=== PATIENT | male | born 1965 | race Caucasian/White ===

== ENCOUNTER 2016-05-24 05:37 | Inpatient (IN) | payer BC, OTHER ==
[~2016-05-24] VITALS: Ht 185.4 cm; Wt 102.8 kg
[~2016-05-24 05:37] MED LIST: ATEN50TA8 PO; DYZC25/50 PO; FENO145T26 PO; PANT40TA PO
[2016-05-24] MEDS ORDERED: MoRPHine SULFATE 2 MG/ML CARP IV STA (06:29)
[2016-05-24] MEDS ORDERED: ONDANSETRON INJ 2 MG/ML 2 ML VIAL IV STA (06:29)
[2016-05-24] MEDS ORDERED: ACETAMINOPHEN 500 MG TAB PO STA (06:29)
[2016-05-24] MEDS ORDERED: SODIUM CHLORIDE 0.9% 1000ML 1,000 ML IV STA (06:29)
[2016-05-24] MEDS ORDERED: FURO-85 PO (06:42)
[2016-05-24] MEDS ORDERED: ALLO300T2 PO (06:42)
[2016-05-24] MEDS ORDERED: SERT-234 PO (06:42)
[2016-05-24] MEDS ORDERED: AMLO-110 PO (06:42)
[2016-05-24] MEDS ORDERED: ATOR-26 PO (06:42)
[2016-05-24] MEDS ORDERED: PRLSR20 PO (06:42)
[2016-05-24] MEDS ORDERED: LSN40 PO (06:42)
[2016-05-24] MEDS ORDERED: MIRT15TA2 PO (06:42)
[2016-05-24] MEDS ORDERED: TRMCR515 TOP (06:42)
[2016-05-24] MEDS ORDERED: BUPR-83 PO (06:42)
[2016-05-24] MEDS ORDERED: GEMF600T PO (06:42)
[2016-05-24] MEDS ORDERED: SAXAGLIPTIN PO (06:42)
[2016-05-24 06:47] LABS: BASO % 0.1 %; BASO ABS # 0.02 K/uL (0-0.2); COMPLETE YES; HEMATOCRIT 48.1 % (42-52); IG% 0.3 %; LYMPH % 10.2 %; LYMPH ABS # 1.68 K/uL (1.2-3.4); MEAN CELL VOLUME 86.5 fL (80-100); MEAN CORPUSCULAR HEMOGLOBIN 31.1 pg (25-34); MONO % 7.4 %; PLATELET COUNT 127 K/uL (130-400); RED BLOOD COUNT 5.56 M/uL (4.7-6.1); WHITE BLOOD COUNT 16.53 K/uL (4.8-10.8)
[2016-05-24 06:52] LABS: BUN/CREATININE RATIO 16.1 (10-20); CALCIUM 8.7 mg/dl (8.5-10.1); CREATININE 1.8 mg/dl (0.60-1.40); MAGNESIUM 1.7 mg/dl (1.8-2.4); POTASSIUM 4.1 mmol/L (3.5-5.1)
[2016-05-24 07:01] LABS: ALB/GLOB RATIO 0.6 (0.9-2); C-REACTIVE PROTEIN 34.7 mg/dl (0-0.29)
[2016-05-24] MEDS ORDERED: VANCOMYCIN INJ 2,000 MG in SODIUM CHLORIDE 0.9% 500ML 500 ML IV STA (07:12)
[2016-05-24] MEDS ORDERED: PIPERACILLIN/TAZOBACTAM 4.5 GM/100ML D5W IV STA (07:12)
--- NOTE | 2016-05-24 07:53 | DIAGNOSTIC IMAGING REPORT ---
CT SCAN OF THE ABDOMEN AND PELVIS WITHOUT CONTRAST CLINICAL HISTORY: Abdominal pain and swelling COMPARISON STUDY: 07/28/2006 TECHNIQUE: CT scan of the abdomen and pelvis was performed from the lung bases to the proximal femurs. Images are reviewed in the axial, sagittal, and coronal planes. IV contrast was not administered for this examination. CT DOSE: 1316.68 mGy.cm FINDINGS: Lower chest: There are mild basilar atelectatic changes present. Liver: There is hepatic steatosis. The liver is enlarged. There are areas of focal fatty sparing adjacent to the gallbladder fossa. Gallbladder: Unremarkable. Spleen: The spleen is enlarged measuring 17.5 cm. No focal masses are visualized. Pancreas: Unremarkable. Adrenal glands: There is mild left adrenal gland thickening. Kidneys: The left kidney appears surgically absent. There is no right-sided hydronephrosis. No ureteral or bladder calculi are visualized. Bowel: There are no transition zones indicate bowel obstruction. The appendix appears normal. There is no acute diverticulitis. Peritoneum: There is no intraperitoneal free air or abdominal ascites. There is a fat-containing right inguinal hernia. There is a fat-containing supraumbilical ventral hernia. Vasculature: The abdominal aorta is normal in course and caliber. Adenopathy: None. Pelvic viscera: The bladder, and pelvic viscera are unremarkable. Skeletal structures: No destructive osseous lesions are seen. IMPRESSION: 1. Postsurgical changes are prior left nephrectomy 2. Hepatic steatosis. Hepatosplenomegaly. 3. No evidence of bowel obstruction. No evidence of free air 4. No acute inflammatory changes 5. Fat-containing ventral hernia and fat-containing right inguinal hernia Electronically signed by: Arian Malone M.D. 05/24/2016 7:51 AM Dictated Date/Time: 05/24/2016 7:47 AM
--- NOTE | 2016-05-24 07:59 | DIAGNOSTIC IMAGING REPORT ---
MAXILLOFACIAL CT WITHOUT CONTRAST CLINICAL HISTORY: Facial pain and swelling. Possible cellulitis. Sinus infection. COMPARISON STUDY: Sinus CT April 03, 2006. TECHNIQUE: A maxillofacial CT was performed without IV contrast. Coronal and sagittal reformats were viewed. FINDINGS: Visualized portions of the intracranial contents are unremarkable on this unenhanced exam. Orbits are within normal limits. Mastoid air cells are clear. There is no fluid within the middle ears. There are postsurgical findings within the ethmoid and maxillary sinuses. There is mild mucosal thickening of the sinuses. Major drainage pathways are present. There is no bony destruction. No mass is identified within the sinuses or the nasal cavity. No fluid collection is identified to suggest an abscess on this exam. There is apparent skin thickening of the left inferior face with mild subcutaneous infiltration. Note is made of a periapical lucency with cortical disruption of a right mandibular molar shown on axial image 196 of 642. There is no adjacent abscess on this unenhanced exam. Multiple dental amalgams are present. IMPRESSION: 1. Apparent facial skin thickening and mild subcutaneous infiltration, most evident along the left inferior face and upper neck. This may reflect cellulitis. No abscess identified on this unenhanced exam. 2. Periapical lucency of a right mandibular molar which does not appear to be the source for the suspected infectious process on this exam. 3. Postsurgical findings within the sinuses. Mild mucosal thickening with patent major drainage pathways. Electronically signed by: Rambo Rodriguez M.D. 05/24/2016 7:57 AM Dictated Date/Time: 05/24/2016 7:48 AM
[2016-05-24] MEDS ORDERED: MAGNESIUM HYDROXIDE SUSP 30 ML UDC PO PRN (09:00)
[2016-05-24] MEDS ORDERED: GLUCOSE 10 TABS/TUBE PO PRN (09:00)
[2016-05-24] MEDS ORDERED: ACETAMINOPHEN 325 MG TAB PO PRN (09:00)
[2016-05-24] MEDS ORDERED: POLYETHYLENE (MIRALAX) 17 GM PACK PO PRN (09:00)
[2016-05-24] MEDS ORDERED: GLUCOSE 40% GEL 15 GM TUBE PO PRN (09:00)
[2016-05-24] MEDS ORDERED: DEXTROSE 50% 50 ML SYR IV PRN (09:00)
[2016-05-24] MEDS ORDERED: MoRPHine SULFATE 2 MG/ML CARP IV PRN (09:00)
[2016-05-24] MEDS ORDERED: ONDANSETRON INJ 2 MG/ML 2 ML VIAL IV PRN (09:00)
[2016-05-24] MEDS ORDERED: GLUCAGON FOR INJ 1 MG VIAL SQ PRN (09:00)
[2016-05-24] MEDS ORDERED: ACETAMINOPHEN 500 MG TAB PO PRN (09:00)
--- NOTE | 2016-05-24 09:30 | History and Physical ---
History & Physical Date & Time of Service: May 24, 2016 at 09:05 Chief Complaint: Face Swells,Sinus Infection,Lwr Abd Pain Primary Care Physician: Rachel Woodward History of Present Illness Source: patient Past Medical/Surgical History Hypertension Hyperlipidemia Diabetes type 2 Status post left nephrectomy Chronic sinusitis Chronic tinnitus Germ cell testicular carcinoma Obstructive sleep apnea not on CPAP Depression Family History This is a 50 yo M with PMHx of hypertension, hyperlipidemia, obstructive sleep apnea does not wear CPAP, exposure to mustard gas in the [employer], chronic sinusitis sinusitis, 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 The patient presents with a family friend rachel, BRITNI. Patient presents after 2 days of increased swelling and redness of face, also now with fever, sweats and chills. He initially had fever starting on Monday night around 01:30. The patient has been taking Tylenol. He notes that his extreme pain over his entire face. Patient has been eating and drinking without difficulty, he has no difficulty with swallowing. Patient reports no difficulty with vision, no ear pain, but does report a history of chronic tinnitus. The patient notes last week starting Wellbutrin XL 100 mg for depression/anxiety, he reports that he has been on this medication before in the past and has never experienced these results. He denies any other new medication changes or additions. Patient denies any environmental exposure. He denies any cardiac complaints, chest pain , shortness of breath, abdominal pain, nausea, vomiting, diarrhea, constipation. In the ER white count is elevated at 0.53, ESR equals 71, CRP was 34.7, hyponatremic with sodium equal to 129, creatinine slightly elevated at 1.8, magnesium mildly decreased at 1.7. Lactic acid has been obtained the patient was started on Vanco and Zosyn after 2 sets of blood cultures. CT of the head was completed showing dental involvement although no specific source of infection. Social History Smoking Status: Never Smoker Smokeless Tobacco Use: No Alcohol Use: occasionally (strength 2 rum and Cokes on Monday night) Drug Use: none Marital Status: single Housing status: lives alone Multi-Drug Resistant Organisms History of MDRO: No Allergies Coded Allergies: Meperidine (Verified Allergy, Severe, hallucinations, 05/24/16) Home Medications Scheduled Allopurinol (Zyloprim), 300 MG PO DAILY Amlodipine (Norvasc), 5 MG PO DAILY Atenolol (Tenormin), 50 MG PO DAILY Atorvastatin (Lipitor), 80 MG PO DAILY Bupropion (Wellbutrin), 100 MG PO DAILY Furosemide (Lasix), 20 MG PO DAILY Gemfibrozil (Lopid), 600 MG PO BID Lisinopril (Lisinopril), 40 MG PO DAILY Mirtazapine Soltab (Remeron Soltab), 15 MG PO HS Omeprazole (Prilosec), 20 MG PO DAILY Sertraline (Zoloft), 100 MG PO DAILY Triamcinolone Acet (Triamcinolone Acetonide), 1 APPLN TOP BID [Saxagliptin], 5 MG PO DAILY Review of Systems Constitutional: + chills, + fever, + problem reported (erythema, edema of the entire face.), + sweats Eyes: + diplopia, + eye pain ENT: + tinnitus, No dental problems, No nasal symptoms, No sore throat, No trouble swallowing Respiratory: No cough, No dyspnea on exertion, No shortness of breath Cardiovascular: No chest pain, No palpitations Abdomen: No constipation, No diarrhea, No nausea, No pain, No vomiting Musculoskeletal: + calf pain (history of muscle cramps), No joint pain, No swelling Genitourinary - Male: No dysuria, No hematuria Neurologic: + balance problems (Monday, patient feels increasingly unbalanced with walking), No numbness/tingling, No vertigo, No weakness Integumentary: + problem reported (as per history of present illness ) Physical Exam Vital Signs Date Time Temp Pulse Resp B/P Pulse Ox O2 Delivery O2 Flow Rate FiO2 05/24/16 08:02 37.5 67 16 115/69 93 Room Air 05/24/16 06:33 78 18 126/79 93 Room Air 05/24/16 05:43 38.1 82 20 109/62 95 Room Air General Appearance: + moderate distress, + obese, + pertinent finding ( angioedema face, erythematous face, grossly diaphoretic) Head: normocephalic, atraumatic, + pertinent finding (erythema of entire face extending down the neck circumfirentially ) Neck: supple, thyroid normal, no JVD, + pertinent finding (+ submandibular lymphadenopathy) Respiratory/Chest: chest non-tender, lungs clear, no respiratory distress, no accessory muscle use Cardiovascular: regular rate, rhythm, no murmur, normal peripheral pulses Abdomen/GI: normal bowel sounds, non tender, soft, no organomegaly, + pertinent finding (large vertical scar over the anterior abdomen) Back: normal inspection, no CVA tenderness Extremities/Musculoskelatal: normal inspection, no calf tenderness, no pedal edema Neurologic/Psych: alert, normal mood/affect, oriented x 3 Skin: normal color (other than described above regarding the face, neck), + diaphoresis Diagnostics Laboratory Results Results Past 24 Hours Test 05/24/16 05:55 05/24/16 06:44 Range/Units White Blood Count 16.53 4.8-10.8 K/uL Red Blood Count 5.56 4.7-6.1 M/uL Hemoglobin 17.3 14.0-18.0 g/dL Hematocrit 48.1 42-52 % Mean Corpuscular Volume 86.5 80-100 fL Mean Corpuscular Hemoglobin 31.1 25-34 pg Mean Corpuscular Hemoglobin Concent 36.0 32-36 g/dl Platelet Count 127 130-400 K/uL Mean Platelet Volume 10.0 7.4-10.4 fL Neutrophils (%) (Auto) 82.0 % Lymphocytes (%) (Auto) 10.2 % Monocytes (%) (Auto) 7.4 % Eosinophils (%) (Auto) 0.0 % Basophils (%) (Auto) 0.1 % Neutrophils # (Auto) 13.55 1.4-6.5 K/uL Lymphocytes # (Auto) 1.68 1.2-3.4 K/uL Monocytes # (Auto) 1.23 0.11-0.59 K/uL Eosinophils # (Auto) 0.00 0-0.5 K/uL Basophils # (Auto) 0.02 0-0.2 K/uL RDW Standard Deviation 43.4 36.4-46.3 fL RDW Coefficient of Variation 13.7 11.5-14.5 % Immature Granulocyte % (Auto) 0.3 % Immature Granulocyte # (Auto) 0.05 0.00-0.02 K/uL Erythrocyte Sedimentation Rate 71 0-14 mm/hr Sodium Level 129 136-145 mmol/L Potassium Level 4.1 3.5-5.1 mmol/L Chloride Level 94 98-107 mmol/L Carbon Dioxide Level 28 21-32 mmol/L Anion Gap 7.0 3-11 mmol/L Blood Urea Nitrogen 29 7-18 mg/dl Creatinine 1.80 0.60-1.40 mg/dl Est Creatinine Clear Calc Drug Dose 60.5 ml/min Estimated GFR () 49.1 Estimated GFR (Non- 42.3 BUN/Creatinine Ratio 16.1 10-20 Random Glucose 271 70-99 mg/dl Calcium Level 8.7 8.5-10.1 mg/dl Magnesium Level 1.7 1.8-2.4 mg/dl Total Bilirubin 1.1 0.2-1 mg/dl Aspartate Amino Transf (AST/SGOT) 15 15-37 U/L Alanine Aminotransferase (ALT/SGPT) 25 12-78 U/L Alkaline Phosphatase 77 45-117 U/L C-Reactive Protein 34.70 0-0.29 mg/dl Total Protein 7.9 6.4-8.2 gm/dl Albumin 3.1 3.4-5.0 gm/dl Globulin 4.8 2.5-4.0 gm/dl Albumin/Globulin Ratio 0.6 0.9-2 Bedside Lactic Acid Venous 1.05 0.90-1.70 mmol/L Microbiology Results 05/24/16 Blood Culture, Received Pending 05/24/16 Blood Culture, Received Pending Diagnostic Radiology CT of the head without contrast 05/24/16 IMPRESSION: 1. Apparent facial skin thickening and mild subcutaneous infiltration, most evident along the left inferior face and upper neck. This may reflect cellulitis. No abscess identified on this unenhanced exam. 2. Periapical lucency of a right mandibular molar which does not appear to be the source for the suspected infectious process on this exam. 3. Postsurgical findings within the sinuses. Mild mucosal thickening with patent major drainage pathways. CT of the abdomen and pelvis 05/24/16 IMPRESSION: 1. Postsurgical changes are prior left nephrectomy 2. Hepatic steatosis. Hepatosplenomegaly. 3. No evidence of bowel obstruction. No evidence of free air 4. No acute inflammatory changes 5. 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 Erysipelas, cellulitis of the face - Admit to med/surg- patient is hemodynamically stable with adequate blood pressure and heart rate, febrile with Tmax= 38.1 - WBC elevated at 16.53, blood cultures obtained and will follow - continue on vancomycin and Zosyn for now. - CT head and face reviewed as above - IVFs at 125ml/hr - ESR and CRP are elevated. - Analgesia with morphine sulfate 2 mg 3 hour when necessary, Tylenol - Antipyretic Tylenol, can order Motrin if needed Hyponatremia - Na= 129, Continue IVF as above. Chronic sinusitis - Very to tear gas/mustard gas exposure while in the [employer] Tinnitus, chronic - Ear exam completed, no tragus tenderness with palpation, TMs were visualized without erythema, edema, or fluid postmembrane. S/p left nephrectomy IFTIKHAR - Creatinine slightly elevated at 1.8, baseline seems to be around 1.4-1.5. - Continue IVF as above, nephrotoxins and renally dose medications including antibiotics DM II - Continue insulin sliding scale with Accu-Cheks before meals at bedtime - Hemoglobin A1c with morning labs - Patient does not regularly check his glucose therefore it is unknown what his normal ranges are S/p germ cell testicular cancer - S post radical chemotherapy in 1991 - resolved Obstructive sleep apnea - Patient does not wear CPAP at night. - Patient has been fitted with a mask before but refuses to wear it, actually says that this worsens his breathing Depression/anxiety ? PTSD - Patient was recently placed on Wellbutrin 100 mg, patient states he has been on this medication before so is unlikely that this is causing facial edema currently although cannot rule it out entirely as this is the only new medication change without determinant infectious source. DVT prophylaxis: Teds, SCDs, out of bed as able CODE STATUS: Full code Disposition: Patient from home, discharged when medically stable. Level of Care Med/Surg Advanced Directives Existing Advance Directive: No Existing Living Will: No Existing Power of Windmill Mechanic: No Existing Health Care Proxy: No Resuscitation Status FULL RESUSCITATION VTE Prophylaxis VTE Risk Assessment Done? Y/N: Yes Risk Level: Low Given or contraindicated: Celia Yates, SCD's Note Attending Admission Note & Attestation: Pt seen/examined, chart reviewed, and care plan d/w ZITA Ocasio. I agree with the raygoza components of her admission documentation. 50yo male presenting with acute onset of facial erythema, swelling, discomfort, fevers, and chills along with myalgias starting acutely on Monday AM about 0130. "I felt like I had the flu." Facial erythema is minimally pruritic. No new meds except for wellbutrin which began 1 week ago. No sick contacts. Facial erythema extends to scalp, ears, and somewhat the neck. PMH, PSH, allergies, meds, sochx, famhx, ros - reviewed vitals - Tm 38.1 BPs normal gen - looks ill but nontoxic skin - uniform, diffuse erythema of the entire face including forehead, nose, cheeks, upper lip/philtrum, both ears, jaw, and EXTENSION across the nasolabial fold b/l; there appears to be erythema of the scalp; there also appears to be a faint macular rash on the back; some erythema of the anterior neck CHEST, arms, legs, palms, soles, groin - all spared heart - RRR lungs - CTA b/l abd - soft, no HSM ext - no joint synovitis sed rate, crp, wbc --- all elevated Cr 1.8 Na 129 A/P: 1. fever, erythema/rash of entire face/ears/scalp/portion of neck 2. acute kidney injury 3. hyponatremia 4. elevated inflammatory markers 5. wellbutrin use for ADD I am not entirely convinced that his erythematous rash as described above is facial cellulitis given the widespread distribution. If he had been using IV vancomycin I would describe his face as a 'red man syndrome' reaction. That obviously is not the case. Drug reaction to wellbutrin is possible but less likely. Dermatomyositis is possible but the rash appears to include the nasolabial folds and that argues against such. Viral etiology is possible - mono, parvovirus, etc. Recheck BMP tonight then again in AM. Ward test. Consider parvo titer, etc. CPK due to myalgias. IVF. IV antibiotics; if no improvement by mid tomorrow then I don't suspect we are dealing with bacterial infectious etiology. Christian Lees MD
[2016-05-24 11:15] VITALS: BMI 29.9
[2016-05-24 11:16] VITALS: BP 120/67; PULSE 67; TEMP 37.5
[2016-05-24 11:33] VITALS: O2SAT 93
--- NOTE | 2016-05-24 11:56 | Pharmacy Progress Note ---
Pharmacy Antibiotic Consult Date of Service: May 24, 2016. Pharmacy Dosing Scope Pharmacy is consulted to initiate Vancomycin IV dosing therapy, order appropriate labs and adjust drug dose/frequency. Subjective The patient is a 50 year old male admitted on May 24, 2016 at 09:04. Objective Height (Feet): 6 Height (Inches): 1.00 Weight (Kilograms): 102.800 Lab Results (24hrs): Laboratory Tests Test 05/24/16 05:55 BUN/Creatinine Ratio 16.1 Blood Urea Nitrogen 29 mg/dl Creatinine 1.80 mg/dl White Blood Count 16.53 K/uL Red Blood Count 5.56 M/uL Hemoglobin 17.3 g/dL Hematocrit 48.1 % Mean Corpuscular Volume 86.5 fL Mean Corpuscular Hemoglobin 31.1 pg Mean Corpuscular Hemoglobin Concent 36.0 g/dl Platelet Count 127 K/uL Mean Platelet Volume 10.0 fL Neutrophils (%) (Auto) 82.0 % Lymphocytes (%) (Auto) 10.2 % Monocytes (%) (Auto) 7.4 % Eosinophils (%) (Auto) 0.0 % Basophils (%) (Auto) 0.1 % Neutrophils # (Auto) 13.55 K/uL Lymphocytes # (Auto) 1.68 K/uL Monocytes # (Auto) 1.23 K/uL Eosinophils # (Auto) 0.00 K/uL Basophils # (Auto) 0.02 K/uL Micro Results: Item Value Date Time Blood Culture Received 05/24/16 0650 Blood Pending Blood Culture Received 05/24/16 0555 Blood Pending Recent Pertinent Medications Item Value Date Time Piperacillin Sod/ 115 ml @ 28.75 mls/hr 05/24/16 1400 Tazobactam Sod Q8H/IV 3.375 gm/Dextrose Assessment & Plan 50 yo M admitted with facial cellulitis, initiated on Vancomycin + Zosyn IV. Blood cultures pending. Vancomycin * Loading dose: 2000 mg IV X 1 dose * Continue 1250 mg IV every 14 hours. * ~12.5 mg/kg selected rather than 15 mg/kg based on goal trough * Goal trough level estimate for cellulitis: ~15 mcg/mL. * A trough level has been ordered for: 05/26/16 prior to the 1600 dose. Zosyn * 3.375 g IV every 8 hours * No adjustment necessary at this time Pharmacy will continue to follow and will adjust dose/frequency as necessary. Thank you
[2016-05-24] MEDS ORDERED: PIPERACILL/TAZOBAC CONSULT ACTIVE PRN (12:00)
[2016-05-24] MEDS ORDERED: VANCOMYCIN CONSULT ACTIVE PRN (12:00)
[2016-05-24] MEDS: INSULIN ASPART 100 UNITS/ML 3 ML PEN SC SCH ×3 (13:07→21:40)
[2016-05-24] MEDS: SODIUM CHLORIDE 0.9% 1000ML 1,000 ML IV SCH ×2 (13:08→20:02)
[2016-05-24] MEDS: PIPERACILL/TAZOBAC IV 3.375 GM in DEXTROSE 5% 100ML 100 ML IV SCH ×2 (14:14→21:40)
[2016-05-24 15:35] VITALS: BP 111/73; PULSE 60; TEMP 36.7; O2SAT 93
[2016-05-24] MEDS ORDERED: INSULIN GLARGINE SOLOSTAR 100 UNITS/ML 3 ML PEN SC SCH (21:00)
[2016-05-24 21:28] LABS: BUN/CREATININE RATIO 22.7 (10-20); CREATININE 1.5 mg/dl (0.60-1.40); POTASSIUM 3.9 mmol/L (3.5-5.1)
[2016-05-24] MEDS ORDERED: VANCOMYCIN INJ 1,250 MG in SODIUM CHLORIDE 0.9% 250ML 250 ML IV SCH (22:00)
[2016-05-25 00:38] VITALS: BP 100/65; PULSE 62; TEMP 36.4; O2SAT 96
[2016-05-25] MEDS: SODIUM CHLORIDE 0.9% 1000ML 1,000 ML IV SCH ×3 (02:41→18:13)
[2016-05-25] MEDS: PIPERACILL/TAZOBAC IV 3.375 GM in DEXTROSE 5% 100ML 100 ML IV SCH (06:00)
[2016-05-25 07:26] LABS: BASO % 0.1 %; BASO ABS # 0.01 K/uL (0-0.2); COMPLETE YES; EOS % 1.3 %; HEMATOCRIT 43.4 % (42-52); IG% 0.2 %; LYMPH % 16.1 %; LYMPH ABS # 1.38 K/uL (1.2-3.4); MEAN CELL VOLUME 85.4 fL (80-100); MEAN CORPUSCULAR HEMOGLOBIN 29.5 pg (25-34); MEAN CORPUSCULAR HGB CONC 34.6 g/dl (32-36); MEAN PLATELET VOLUME 9.5 fL (7.4-10.4); MONO % 8.5 %; NEUT % 73.8 %; PLATELET COUNT 125 K/uL (130-400); RED BLOOD COUNT 5.08 M/uL (4.7-6.1); WHITE BLOOD COUNT 8.58 K/uL (4.8-10.8)
[2016-05-25 07:40] VITALS: BP 120/77; PULSE 62; TEMP 36.7; O2SAT 95
[2016-05-25 07:59] LABS: BUN/CREATININE RATIO 23.9 (10-20); CALCIUM 9.1 mg/dl (8.5-10.1); CREATININE 1.2 mg/dl (0.60-1.40); POTASSIUM 3.9 mmol/L (3.5-5.1)
[2016-05-25 08:10] LABS: ESTIMATED AVERAGE GLUCOSE 255 mg/dl; HA1C FLAG Normal (Normal)
[2016-05-25 08:30] VITALS: O2SAT 95
[2016-05-25] MEDS: INSULIN ASPART 100 UNITS/ML 3 ML PEN SC SCH ×4 (08:50→21:21)
[2016-05-25] MEDS ORDERED: VANCOMYCIN INJ 1,250 MG in SODIUM CHLORIDE 0.9% 250ML 250 ML IV SCH (10:00)
--- NOTE | 2016-05-25 11:14 | Hospitalist Progress Note ---
Hospitalist Progress Note Date of Service May 25, 2016. (Raissa Ocasio PA-C) Subjective Pt evaluation today including: conversation w/ patient, physical exam, chart review, lab review, review of studies, review of inpatient medication list Pain: minimal facial pain PO Intake: good Voiding: no voiding problems The patient was seen and examined this morning. Patient reports feeling better than yesterday. He reports swelling in his face has gone down slightly, he also notes he is completely oriented,she was very confused yesterday. The patient denies having any fevers, sweats or chills overnight. He has been able to ambulate with assistance. Denies any other acute complaints. He is hoping to be discharged tomorrow after trial of steroids. Additional Comments: ROS: Constitutional: No fever, chills, sweats, fatigue or weakness Head: erythema, edema, slightly improved compared to yesterday. Eyes: No diplopia, no changes in vision, no scleral injection ENT: No sore throat, tinnitus, or trouble swallowing Respiratory: No shortness of breath, No dyspnea at rest or on exertion, no cough or sputum Cardiovascular: No chest pain, palpitations, or flutter Abdomen: No pain, No constipation, No diarrhea, No nausea, No vomiting Musculoskeletal: No calf pain, No joint pain, No swelling Genitourinary : No dysuria or urinary frequency, No hematuria Neurologic: No numbness/tingling, no difficulty with ambulation, no sensory or motor deficits Psychiatric: No depression or anxiety symptoms Endocrine: No fatigue, No weight changes Integumentary: Facial skin is itchy. No rash (Raissa Ocasio PA-C) Objective Vital Signs Date Time Temp Pulse Resp B/P Pulse Ox O2 Delivery O2 Flow Rate FiO2 05/25/16 07:40 36.7 62 16 120/77 95 05/25/16 00:38 36.4 62 20 100/65 96 Room Air 05/25/16 00:00 Room Air 05/24/16 19:29 Room Air 05/24/16 15:35 36.7 60 22 111/73 93 Room Air 05/24/16 11:33 93 Room Air 05/24/16 11:16 37.5 67 20 120/67 (Filipowicz,Raissa G., PA-C) Physical Exam General Appearance: WD/WN, no apparent distress, + pertinent finding (Facial erythema lessened, facial edema slightly improved) Eyes: PERRL, EOMI ENT: hearing grossly normal, pharynx normal, + pertinent finding (no difficulty with swallowing) Neck: supple, no JVD, + pertinent finding (+ mild clavicular lymphadenopathy, submandibular lymphadenopathy, tender with palpation, ) Respiratory/Chest: chest non-tender, lungs clear, no respiratory distress, no accessory muscle use Cardiovascular: regular rate, rhythm, no JVD, no murmur Abdomen: normal bowel sounds, non tender, soft, no organomegaly Extremities: non-tender, normal inspection, no calf tenderness Neurologic/Psychiatric: alert, normal mood/affect, oriented x 3 Skin: normal color (other than per HPI) (Raissa Ocasio PA-C) Laboratory Results Last 24 Hours Test 05/24/16 11:37 05/24/16 16:50 05/24/16 20:30 05/24/16 20:37 Bedside Glucose 251 mg/dl 273 mg/dl 223 mg/dl Sodium Level 133 mmol/L Potassium Level 3.9 mmol/L Chloride Level 100 mmol/L Carbon Dioxide Level 25 mmol/L Anion Gap 8.0 mmol/L Blood Urea Nitrogen 34 mg/dl Creatinine 1.50 mg/dl Est Creatinine Clear Calc Drug Dose 72.6 ml/min Estimated GFR () 61.2 Estimated GFR (Non- 52.8 BUN/Creatinine Ratio 22.7 Random Glucose 234 mg/dl Calcium Level 9.0 mg/dl Total Creatine Kinase 57 U/L Monoscreen NEG Test 05/25/16 06:15 05/25/16 07:36 White Blood Count 8.58 K/uL Red Blood Count 5.08 M/uL Hemoglobin 15.0 g/dL Hematocrit 43.4 % Mean Corpuscular Volume 85.4 fL Mean Corpuscular Hemoglobin 29.5 pg Mean Corpuscular Hemoglobin Concent 34.6 g/dl Platelet Count 125 K/uL Mean Platelet Volume 9.5 fL Neutrophils (%) (Auto) 73.8 % Lymphocytes (%) (Auto) 16.1 % Monocytes (%) (Auto) 8.5 % Eosinophils (%) (Auto) 1.3 % Basophils (%) (Auto) 0.1 % Neutrophils # (Auto) 6.33 K/uL Lymphocytes # (Auto) 1.38 K/uL Monocytes # (Auto) 0.73 K/uL Eosinophils # (Auto) 0.11 K/uL Basophils # (Auto) 0.01 K/uL RDW Standard Deviation 42.4 fL RDW Coefficient of Variation 13.5 % Immature Granulocyte % (Auto) 0.2 % Immature Granulocyte # (Auto) 0.02 K/uL Sodium Level 136 mmol/L Potassium Level 3.9 mmol/L Chloride Level 102 mmol/L Carbon Dioxide Level 24 mmol/L Anion Gap 10.0 mmol/L Blood Urea Nitrogen 29 mg/dl Creatinine 1.20 mg/dl Est Creatinine Clear Calc Drug Dose 90.7 ml/min Estimated GFR () 80.1 Estimated GFR (Non- 69.1 BUN/Creatinine Ratio 23.9 Random Glucose 217 mg/dl Estimated Average Glucose 255 mg/dl Hemoglobin A1c 10.5 % Calcium Level 9.1 mg/dl Bedside Glucose 221 mg/dl (Raissa Ocasio, GEN) Assessment and Plan This is a 50 yo M with PMHx of hypertension, hyperlipidemia, DM II, obstructive sleep apnea does not wear CPAP, exposure to mustard gas in the [employer], chronic sinusitis sinusitis, tinnitus, 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 Cellulitis of the face vs dermatomyositis? -Patient has been hemodynamically stable, afebrile, heart rate is regular, BP stable - WBC decreased to 8K, blood cultures to follow -We'll start patient on Solu-Medrol 40 mg twice a day for now, hold antibiotics as feels that this is more of an inflammatory reaction versus bacterial infection of the skin. - CT head and face reviewed - IVFs cam be titrated down - ESR and CRP are elevated. - Analgesia with morphine sulfate 2 mg 3 hour when necessary, Tylenol- patient reports skin on his face more itchy than painful today. - order Benadryl 25 mg Q6H prn for itch and swelling. - Antipyretic Tylenol, can order Motrin if needed Hyponatremia - Na= 136, resolved at this time Chronic sinusitis - Very to tear gas/mustard gas exposure while in the [employer] Tinnitus, chronic - Ear exam completed, no tragus tenderness with palpation, TMs were visualized without erythema, edema, or fluid postmembrane. S/p left nephrectomy IFTIKHAR - Creatinine improved to 1.2, baseline seems to be around 1.4-1.5. - Continue IVF as above, nephrotoxins and renally dose medications including antibiotics DM II - Continue insulin sliding scale with Accu-Cheks before meals at bedtime - sugars have been running in the high 200s since admission - Hemoglobin A1c = 10.5 - The patient is on saxaglipin 5 mg at home, the patient was started on Lantus 10 mg HS las evening, will increase this to BID dosing with such poor control. - Discussion regarding exercise and diet was held at bedside. The patient will need close follow-up upon discharge with his provider at the [facility] S/p germ cell testicular cancer - S post radical chemotherapy in 1991 - resolved Obstructive sleep apnea - Patient does not wear CPAP at night. - Patient has been fitted with a mask before but refuses to wear it, actually says that this worsens his breathing Depression/anxiety ? PTSD - Patient was recently placed on Wellbutrin 100 mg, patient states he has been on this medication before so is unlikely that this is causing facial edema currently although cannot rule it out entirely as this is the only new medication change without determinant infectious source. DVT prophylaxis: Teds, SCDs, out of bed as able CODE STATUS: Full code Disposition: Patient from home, discharged when medically stable. (Raissa Ocasio, GEN) Attending Attestation: Pt seen/examined, chart reviewed, care plan d/w ZITA Ocasio. I agree w/ the raygoza components of her documentation. Saw pt twice today. First visit was in the AM - scant improvement in erythema of face/neck. Elected to stop abx (due to little concern of infection) and placed on steroids for suspected inflammatory condition. During my 2nd visit later in the day (about 1830) he stated "it's so much better." He reported less swelling of face and less erythema of neck/face. Myalgias resolved. VSS no fever skin - facial erythema/b/l ear erythema/neck erythema -- markedly improved rest of skin exam - normal; no new areas of rash cr 1.2 today A/P: facial rash - inflammatory - dermatomyositis? viral? other? continue steroids; convert to PO prednisone spoke with Dr. Bourne from rheumatology who will see him next at 12noon in her clinic. she is unsure if this represents dermatomyositis or simply inflammatory rxn to some other process. agrees w/ steroids. consent for pictures obtained from patient. pictures taken and sent to Dr. Bourne of the rash. Acute kidney injury - resolved. d/c fluids tonight. likely d/c in AM. time 45 minutes Shen LEES MD (Christian Lees MD)
[2016-05-25 11:24] VITALS: BMI 29.9
[2016-05-25] MEDS ORDERED: METHYLPREDNISOLONE IV 40 MG in SYRINGE 0 ML IV SCH (12:30)
[2016-05-25] MEDS: INSULIN GLARGINE SOLOSTAR 100 UNITS/ML 3 ML PEN SC SCH ×2 (12:40→21:21)
[2016-05-25 15:50] VITALS: BP 129/85; PULSE 65; TEMP 36.6; O2SAT 95
[2016-05-25 23:55] VITALS: BP 146/75; PULSE 71; TEMP 36.5; O2SAT 96
--- NOTE | 2016-05-26 06:08 | EMERGENCY ROOM VISIT NOTE ---
History First contact with patient: 06:20 Chief Complaint: ILLNESS Stated Complaint: FACIAL CELLULITIS History of Present Illness The patient is a 50 year old male who presents to the Emergency Department by private vehicle for evaluation of his facial swelling, sinus infection, and lower abdominal discomfort. The patient reports that he is sick with nasal congestion as well as sinus congestion since last week. He developed swelling to his face on Monday morning. He has had chills and sweats since as well. The swelling worsened today which prompted his visit. He complains of a dull headache. He also feels lightheaded. He denies any recent trauma or injury to his face. He rates his current discomfort as an 8/10. He's taken Tylenol with minimal relief of symptoms. The patient does have a significant past history of diabetes as well as nephrectomy secondary to neoplasm. He denies any blurry vision, double vision, slurred speech, facial droop, unilateral weakness/ numbness, neck pain/stiffness, chest pain, palpitations, cough, nausea, or vomiting. He denies any hematochezia or melena. He reports no hematuria or dysuria. Review of Systems A complete 10-point Review of Systems was discussed with the patient, with pertinent positives and negatives listed in the History of Present Illness. All remaining Review of Systems questions can be considered negative unless otherwise specified. Past Medical/Surgical History Medical Problems: (1) Facial cellulitis Social History Smoking Status: Never Smoker Smokeless Tobacco Use: No Drug Use: none Marital Status: single Current/Historical Medications Scheduled Allopurinol (Zyloprim), 300 MG PO DAILY Amlodipine (Norvasc), 5 MG PO DAILY Atenolol (Tenormin), 50 MG PO DAILY Atorvastatin (Lipitor), 80 MG PO DAILY Bupropion (Wellbutrin), 100 MG PO DAILY Furosemide (Lasix), 20 MG PO DAILY Gemfibrozil (Lopid), 600 MG PO BID Lisinopril (Lisinopril), 40 MG PO DAILY Mirtazapine Soltab (Remeron Soltab), 15 MG PO HS Omeprazole (Prilosec), 20 MG PO DAILY Sertraline (Zoloft), 100 MG PO DAILY Triamcinolone Acet (Triamcinolone Acetonide), 1 APPLN TOP BID [Saxagliptin], 5 MG PO DAILY Allergies Coded Allergies: Meperidine (Verified Allergy, Severe, hallucinations, 05/24/16) Physical Exam Vital Signs Date Time Temp Pulse Resp B/P Pulse Ox O2 Delivery O2 Flow Rate FiO2 05/24/16 08:02 37.5 67 16 115/69 93 Room Air 05/24/16 06:33 78 18 126/79 93 Room Air 05/24/16 05:43 38.1 82 20 109/62 95 Room Air Pain Rating (0-10): 8 Physical Exam VITAL SIGNS - Vital signs and nursing notes were reviewed. GENERAL - Well nourished, well developed 50-year-old male in no acute distress. Pt communicates well with provider and answers questions appropriately. SKIN -diffuse erythema and edema noted to the entire face with warmth to touch. No fluctuance to palpation or discharge appreciated. HEAD - NC/AT with no obvious deformities. EYES - PERRL with EOMI bilaterally. Sclera without injection. Palpebral conjunctiva pink and moist. EARS - No deformities of external structures noted on gross examination bilaterally. No pain elicited with palpation of the tragus bilaterally. External auditory canals without discharge or otorrhea. Tympanic membranes pearly martines without retraction or bulging. No fluid or purulent material visualized behind the TM. Handle of malleus, umbo, cone of light, pars tensa/ flaccid all easily visualized. NOSE - Midline and without cyanosis. No purulent drainage noted. Nasal mucosa without mucus discharge. MOUTH/OROPHARYNX - Without perioral cyanosis. Buccal mucosa pink and moist and without leukoplakia. Tongue midline with equal elevation of palate bilaterally. No tonsillar hypertrophy, erythema, or exudates noted. Good dentition noted. NECK - Neck with FROM. Supple to palpation. No lymphadenopathy noted. No nuchal rigidity. LUNGS - Chest wall symmetric without accessory muscle use, intercostals retractions, or central cyanosis. Normal vesicular breath sounds CTA B/L. No wheezes, rales, or rhonchi appreciated. CARDIAC - RRR with S1/S2. No murmur, rubs, or gallops appreciated. ABDOMEN - Abdominal contour protuberant without pulsations or visible masses. BS normoactive all four quadrants. Moderate RIGHT lower quadrant tenderness to palpation. No palpable masses, hepatosplenomegaly, or ascites noted. Medical Decision & Procedures ER Provider Diagnostic Interpretation: Radiological imaging and reports were reviewed by myself. Radiologist's Interpretation as follows: CT SCAN OF THE ABDOMEN AND PELVIS WITHOUT CONTRAST CLINICAL HISTORY: Abdominal pain and swelling COMPARISON STUDY: 07/28/2006 TECHNIQUE: CT scan of the abdomen and pelvis was performed from the lung bases to the proximal femurs. Images are reviewed in the axial, sagittal, and coronal planes. IV contrast was not administered for this examination. CT DOSE: 1316.68 mGy.cm FINDINGS: Lower chest: There are mild basilar atelectatic changes present. Liver: There is hepatic steatosis. The liver is enlarged. There are areas of focal fatty sparing adjacent to the gallbladder fossa. Gallbladder: Unremarkable. Spleen: The spleen is enlarged measuring 17.5 cm. No focal masses are visualized. Pancreas: Unremarkable. Adrenal glands: There is mild left adrenal gland thickening. Kidneys: The left kidney appears surgically absent. There is no right-sided hydronephrosis. No ureteral or bladder calculi are visualized. Bowel: There are no transition zones indicate bowel obstruction. The appendix appears normal. There is no acute diverticulitis. Peritoneum: There is no intraperitoneal free air or abdominal ascites. There is a fat-containing right inguinal hernia. There is a fat-containing supraumbilical ventral hernia. Vasculature: The abdominal aorta is normal in course and caliber. Adenopathy: None. Pelvic viscera: The bladder, and pelvic viscera are unremarkable. Skeletal structures: No destructive osseous lesions are seen. IMPRESSION: 1. Postsurgical changes are prior left nephrectomy 2. Hepatic steatosis. Hepatosplenomegaly. 3. No evidence of bowel obstruction. No evidence of free air 4. No acute inflammatory changes 5. Fat-containing ventral hernia and fat-containing right inguinal hernia MAXILLOFACIAL CT WITHOUT CONTRAST CLINICAL HISTORY: Facial pain and swelling. Possible cellulitis. Sinus infection. COMPARISON STUDY: Sinus CT April 03, 2006. TECHNIQUE: A maxillofacial CT was performed without IV contrast. Coronal and sagittal reformats were viewed. FINDINGS: Visualized portions of the intracranial contents are unremarkable on this unenhanced exam. Orbits are within normal limits. Mastoid air cells are clear. There is no fluid within the middle ears. There are postsurgical findings within the ethmoid and maxillary sinuses. There is mild mucosal thickening of the sinuses. Major drainage pathways are present. There is no bony destruction. No mass is identified within the sinuses or the nasal cavity. No fluid collection is identified to suggest an abscess on this exam. There is apparent skin thickening of the left inferior face with mild subcutaneous infiltration. Note is made of a periapical lucency with cortical disruption of a right mandibular molar shown on axial image 196 of 642. There is no adjacent abscess on this unenhanced exam. Multiple dental amalgams are present. IMPRESSION: 1. Apparent facial skin thickening and mild subcutaneous infiltration, most evident along the left inferior face and upper neck. This may reflect cellulitis. No abscess identified on this unenhanced exam. 2. Periapical lucency of a right mandibular molar which does not appear to be the source for the suspected infectious process on this exam. 3. Postsurgical findings within the sinuses. Mild mucosal thickening with patent major drainage pathways. Laboratory Results Test 05/24/16 05:55 05/24/16 06:44 Magnesium Level 1.7 mg/dl (1.8-2.4) Total Bilirubin 1.1 mg/dl (0.2-1) Aspartate Amino Transf (AST/SGOT) 15 U/L (15-37) Alanine Aminotransferase (ALT/SGPT) 25 U/L (12-78) Alkaline Phosphatase 77 U/L (45-117) Total Protein 7.9 gm/dl (6.4-8.2) Albumin 3.1 gm/dl (3.4-5.0) Globulin 4.8 gm/dl (2.5-4.0) Albumin/Globulin Ratio 0.6 (0.9-2) Bedside Lactic Acid Venous 1.05 mmol/L (0.90-1.70) Medications Administered Medications (Trade) Dose Ordered Sig/Frank[place] Route Start Time Stop Time Status Last Admin Dose Admin Acetaminophen (Tylenol Tab) 1,000 mg NOW STAT PO 05/24/16 06:29 05/24/16 06:33 DC 05/24/16 06:48 1,000 MG Morphine Sulfate (MoRPHine SULFATE INJ) 2 mg NOW STAT IV 05/24/16 06:29 05/24/16 06:33 DC 05/24/16 06:48 2 MG Ondansetron HCl 4 mg 4 mg NOW STAT IV 05/24/16 06:29 05/24/16 06:33 DC 05/24/16 06:47 4 MG Sodium Chloride 1,000 ml @ 999 mls/hr Q1H1M STAT IV 05/24/16 06:29 05/24/16 07:29 DC 05/24/16 06:47 999 MLS/HR Vancomycin HCl/ Sodium Chloride (Vancomycin Inj/ Nss 500ml) 540 ml @ 200 mls/hr ONE STAT IV 05/24/16 07:12 05/24/16 09:53 DC 05/24/16 08:49 200 MLS/HR Piperacillin Sod/ Tazobactam Sod (Zosyn Iv) 4.5 gm NOW STAT IV 05/24/16 07:12 05/24/16 07:16 DC 05/24/16 08:04 4.5 GM Acetaminophen (Tylenol Tab) 1,000 mg Q6H PRN PO 05/24/16 09:00 06/23/16 08:59 05/24/16 17:52 1,000 MG ED Course Patient was seen and evaluated by myself. Labs were drawn, saline lock in place. Blood cultures were obtained. The patient was treated with 1 g of Tylenol orally. He received 2 mg morphine and 4 mg Zofran intravenously. He was hydrated with a 1000 mL normal saline bolus. After consultation with pharmacy, the patient was treated with IV vancomycin and Zosyn. CT of the facial bones and abdomen/pelvis were obtained. Laboratory results demonstrate a moderate leukocytosis of greater than 16,000 with left shift. The patient's ESR and CRP are significantly elevated as well. Patient's creatinine was elevated at 1.8. [id number] lactic acid was negative. CT results as above. Laboratory results and imaging studies were reviewed with the patient who acknowledges understanding. The patient was admitted to the [facility] Hospitalist service for further evaluation and management. The patient was admitted in good condition. Medical Decision Given the patient's presentation and exam findings, I did elect to perform the above-mentioned workup. The patient presents today with erythema and edema to the face. Exam is concerning for diffuse facial cellulitis. Given his recent upper respiratory infection and sinus symptoms, I did perform CT of the facial bones as well as CT the abdomen and pelvis given his reproducible pain in the lower abdomen with history of cancer. He has a marked leukocytosis in addition to significant elevation of his inflammatory markers. [id number] lactic acid was negative, however. Regardless, the patient was aggressively managed with intravenous antibiotics. He is a diabetic with certainty tablets in a greater risk for systemic spread of infections. I did consult pharmacy for antibiotic dosing given the patient's history of nephrectomy and chronic elevation of his creatinine. CT demonstrates no abscesses to the face or other concerning findings of the abdomen/pelvis. The patient was admitted to the hospitalist service for further evaluation and management. Patient was admitted in good condition. In the evaluation and treatment of this patient, the following differential diagnoses were considered: Dermatitis, abscess, for body, meningitis, encephalitis, Derian's angina, amongst others. Impression Primary Impression: Facial cellulitis Departure Information Dispostion Admitted as an inpatient Condition FAIR Referrals Rachel Woodward (PCP) Forms WORK / SCHOOL INSTRUCTIONS, HOME CARE DOCUMENTATION FORM, IMPORTANT VISIT INFORMATION Patient Instructions [facility]
[2016-05-26 06:15] LABS: COMPLETE YES; HEMATOCRIT 43.2 % (42-52); IG% 0.6 %; LYMPH % 19.8 %; MEAN CELL VOLUME 86.4 fL (80-100); MEAN CORPUSCULAR HEMOGLOBIN 30.4 pg (25-34); MEAN CORPUSCULAR HGB CONC 35.2 g/dl (32-36); MONO % 5.2 %; NEUT % 74.4 %; PLATELET COUNT 156 K/uL (130-400); WHITE BLOOD COUNT 6.58 K/uL (4.8-10.8)
[2016-05-26 06:42] LABS: BUN/CREATININE RATIO 26.6 (10-20); CALCIUM 9.5 mg/dl (8.5-10.1); CREATININE 1.1 mg/dl (0.60-1.40); POTASSIUM 4.1 mmol/L (3.5-5.1)
[2016-05-26 06:45] LABS: C-REACTIVE PROTEIN 15.4 mg/dl (0-0.29)
[2016-05-26] MEDS ORDERED: INSULIN GLARGINE SOLOSTAR 100 UNITS/ML 3 ML PEN SC SCH (08:00)
[2016-05-26 08:22] VITALS: BP 146/93; PULSE 57; TEMP 36.4; O2SAT 94
[2016-05-26] MEDS: INSULIN ASPART 100 UNITS/ML 3 ML PEN SC SCH ×2 (09:04→13:53)
[2016-05-26] MEDS ORDERED: VANCOMYCIN TROUGH SCH ×2 (09:30→15:30)
[2016-05-26 13:35] VITALS: Ht 185.4 cm; Wt 102.8 kg
[2016-05-26] MEDS ORDERED: PRED10TA PO (15:15)
[2016-05-26] MEDS ORDERED: INSDGIPEN SC (15:15)
[2016-05-26] MEDS ORDERED: INSU-698 SC (15:16)
--- NOTE | 2016-05-26 15:26 | Discharge Instructions ---
Discharge Instructions Date of Service May 26, 2016. Admission Reason for Admission: Fever, dehydration, facial rash Discharge Discharge Diagnosis / Problem: Facial rash - exact etiology unclear but improved with steroids. Discharge Goals Goal(s): Learn about illness, Diagnostic testing, Therapeutic intervention Activity Recommendations Activity Limitations: resume your previous activity (as tolerated) . Instructions / Follow-Up Instructions / Follow-Up From Dr. Lees: 1. facial rash, recent fevers, recent chills and body aches -- Initially there was concern of infection of the face. However, the facial rash appears to NOT be infectious but rather due to inflammation. You had rapid improvement of the facial rash with steroids. At this point there is concern this could be a condition called dermatomyositis OR due to a viral process OR due to drug reaction (less likely). Please continue on prednisone; start this TOMORROW on 05/27/16. Stay on the prednisone until you are seen by the hydrogenation still operator Dr. Bourne. Take the prednisone with food. 2. In the rare event this was a reaction to buproprion (wellbutrin) please STOP the bupropion. 3. Type 2 Diabetes - * resume your onglyza * start LANTUS pen insulin 30 units every AM upon awakening * start this TOMORROW AM on 05/27/16 * check your blood sugar every AM and at least one other time during the day ( before a meal or at bedtime) * follow-up with your family doctor at the [facility] for ongoing surveillance of the diabetes 4. Hypertension / high blood pressure - * during your stay your blood pressures were low or low normal * you weren't receiving much of your blood pressure pills * STOP your lisinopril for now * STOP your norvasc (amlodipine) for now * ok to resume your atenolol and lasix * over the weekend try to check your blood pressure at home or at a local pharmacy to see what the readings are; give those readings to your family doctor * if your blood pressure rises you may need to resume the lisinopril or amlodipine in the future 5. Your liver and spleen were enlarged on the CAT scan of the abdomen. The exact cause of this is not known but will need follow up. It may or may not be related to your recent illness and facial rash. 6. See the [facility] clinic THIS MONDAY OR MONDAY for followup of your diabetes and high blood pressure. Call your family doctor with recurrent fevers over 100.5 degrees, return of the body aches or cramps, worsening rash, etc. Current Hospital Diet Patient's current hospital diet: Diabetes Type 2 Diet, AHA Diet (Heart Healthy) Discharge Diet Recommended Diet: Diabetes Type 2 Diet Procedures Procedures Performed: CAT scan of the abdomen showing enlarged liver and enlarged spleen CAT scan of the face showing inflammation Pending Studies Studies pending at discharge: yes List of pending studies: mono testing (viral study) Laboratory Results Hemoglobin A1c Test 05/25/16 06:15 Range/Units Estimated Average Glucose 255 mg/dl Hemoglobin A1c 10.5 H 4.5-5.6 % Medical Emergencies . Who to Call and When: Medical Emergencies: If at any time you feel your situation is an emergency, please call 911 immediately. . Non-Emergent Contact Non-Emergency issues call your: Primary Care Provider Call Non-Emergent contact if: temperature is above 100.5, your pain is not controlled, your pain is worsening, your pain is unusual for you, your pain is concerning you, you have any medication questions . . "Provider Documentation" section prepared by Christian Lees. VTE Core Measure Inpt VTE Proph given/why not?: Celia Yates, SCD's
[2016-05-26 15:47] VITALS: BP 140/98; PULSE 81; TEMP 36.7; O2SAT 97
[2016-05-26 16:21] VITALS: BP 140/98; PULSE 81; TEMP 36.7; O2SAT 97
[2016-05-26 16:25] LABS: EBV EARLY ANTIGEN AB <0.91 INDEX; EPSTEIN BARR VIR CAPSID IGG 3.39 INDEX
--- NOTE | 2016-06-02 22:39 | Discharge Summary ---
Discharge Summary Date of Service Jun 02, 2016. Discharge Summary Admission Date: May 24, 2016 at 09:04 Discharge Date: May 26, 2016 Discharge Disposition: Home Principal Diagnosis: facial rash, inflammatory in nature Problems/Secondary Diagnoses: 1. uncontrolled T2DM 2. HTN 3. hyperlipidemia 4. h/o obstructive sleep apnea (not on CPAP) 5. exposure to mustard gas in the [employer] 6. chronic sinusitis 7. h/o germ cell testicular carcinoma 8. s/p left nephrectomy in 1992 9. acute kidney injury - resolved 10. hyponatremia - resolved 11. hepatosplenomegaly Procedures: 1. CT face: IMPRESSION: 1. Apparent facial skin thickening and mild subcutaneous infiltration, most evident along the left inferior face and upper neck. This may reflect cellulitis. No abscess identified on this unenhanced exam. 2. Periapical lucency of a right mandibular molar which does not appear to be the source for the suspected infectious process on this exam. 3. Postsurgical findings within the sinuses. Mild mucosal thickening with patent major drainage pathways. 2. CT abd/pelvis: IMPRESSION: 1. Postsurgical changes are prior left nephrectomy 2. Hepatic steatosis. Hepatosplenomegaly. 3. No evidence of bowel obstruction. No evidence of free air 4. No acute inflammatory changes 5. Fat-containing ventral hernia and fat-containing right inguinal hernia Medication Reconciliation New Medications: Needle (Bd Pen Needle/Mini/Ultraf) 1 Ea Inj BOX SC QAM, #1 5 Refills use once daily with lantus pen. Insulin Glargine (Lantus Solostar) 100 Unit/Ml Inj 30 UNITS SC QAM, #1 BOX 5 Refills Prednisone Tab (Prednisone) 10 Mg Tab 10 MG PO DIRECTED, #30 TAB 0 Refills start 05/27/16: 3 tabs QD x 3 days, 2 tabs QD x 3 days, then 1 tablet QD. Continued Medications: Allopurinol (Zyloprim) 300 Mg Tab 300 MG PO DAILY, TAB Atenolol (Tenormin) 50 Mg Tab 50 MG PO DAILY, 0 Refills Atorvastatin (Lipitor) 80 Mg Tab 80 MG PO DAILY, TAB Furosemide (Lasix) 20 Mg Tab 20 MG PO DAILY, TAB Gemfibrozil (Lopid) 600 Mg Tab 600 MG PO BID, TAB Mirtazapine Soltab (Remeron Soltab) 15 Mg Soltab 15 MG PO HS, TAB Omeprazole (Prilosec) 20 Mg Capcr 20 MG PO DAILY, CAP Sertraline (Zoloft) 100 Mg Tab 100 MG PO DAILY, TAB Triamcinolone Acet (Triamcinolone Acetonide) 45 Appln/15 Gm Cr 1 APPLN TOP BID for 30 Days, #15 GM 1 Refill [Saxagliptin] () 5 MG PO DAILY Discontinued Medications: Amlodipine (Norvasc) 5 Mg Tab 5 MG PO DAILY, TAB Bupropion (Wellbutrin) 100 Mg Tab 100 MG PO DAILY, TAB Lisinopril (Lisinopril) 40 Mg Tab 40 MG PO DAILY Discharge Exam Physical Exam: General Appearance: WD/WN, no apparent distress ENT: pharynx normal Neck: no JVD Respiratory/Chest: lungs clear, no respiratory distress, no accessory muscle use Cardiovascular: regular rate, rhythm, no gallop, no murmur, normal peripheral pulses Abdomen / GI: normal bowel sounds, non tender, soft Extremities: no pedal edema Neurologic/Psychiatric: alert, oriented x 3 Skin: + pertinent finding (erythema of both ears, forehead, nasal bridge, cheeks, upper neck (anterior and posterior); relative sparing of nasolabial folds and chin; mild scale present over the ears and other areas of the face ) Hospital Course HISTORY OF PRESENT ILLNESS: 50 yo male with history of hypertension, hyperlipidemia, obstructive sleep apnea (not on CPAP), exposure to mustard gas in the [employer], chronic sinusitis, germ cell testicular carcinoma, and s/p left nephrectomy in 1992 who presented with 2 days of increased swelling and redness of face, fever, sweats and chills. He initially had fever starting on Monday night around 01:30. The patient has been taking Tylenol. He noted pain over his entire face. Patient had been eating and drinking without difficulty and denied any difficulty with swallowing. The patient noted last week that he started Wellbutrin XL100 mg for depression/anxiety but that he had taken this medication in the past without any rash or other apparent reaction. He denied any other new medication changes or additions. Patient denied any environmental exposure. He denied any cardiac complaints, chest pain, shortness of breath, abdominal pain, nausea, vomiting, diarrhea, constipation. In the ER white count was elevated, ESR was 71, CRP was 34.7, sodium was 129, creatinine was 1.8, and magnesium was mildly decreased at 1.7. Due to concerns of facial cellulitis Vanco and Zosyn were started after 2 sets of blood cultures were obtained. HOSPITAL COURSE: Following institution of IV antibiotics for his questionable facial cellulitis there was little improvement over the next 36 hours with antibiotic therapy. In light of the unusual distribution of the rash/erythema along with his markedly elevated inflammatory markers (and recent severe myalgias) he was begun on steroids. Within 10-12 hours of such he had marked improvement in the rash/erythema of the face/neck. The robust response to steroids argued more for an inflammatory process rather than infectious process. Differential for his facial rash included dermatomyositis vs drug reaction ( unusual just to affect the face) vs viral syndrome (e.g. mono) vs other process. Monospot testing was negative; EBV panel was sent. Blood cultures remained negative while here, and he had no fever throughout his stay. He was discharged home on a slow steroid taper with specific instructions to follow-up with Dr. Laverne Bourne, [facility], to definitively include/exclude dermatomyositis or some other inflammatory process. Other problems addressed while hospitalized - 1. uncontrolled T2DM - the patient was counseled that he was in need of insulin and he was agreeable to taking once daily lantus at discharge. Hemoglobin a1c was 10.5%. He will need close follow-up with his PCP for this issue as he may need a more complex insulin regimen. Saxagliptin will be continued for now. 2. HTN - due to his dehydration and low-normal BP many of his BP medications were held. His lisinopril and amlodipine will both be held at discharge. He will need close follow-up with his PCP for his hypertension. 3. acute kidney injury - peak creatinine was 1.8, improving to 1.1 at discharge. 4. hyponatremia - resolved with IV fluids. 5. hepatosplenomegaly - CT abd/pelvis demonstrated organomegaly. The etiology of this was unclear but certainly could have been related to the presenting complaints of fever, myalgias, facial rash, etc. LFTs were normal during his hospitalization. He will need follow-up for this issue. Total Time Spent: Greater than 30 minutes This includes examination of the patient, discharge planning, medication reconciliation, and communication with other providers. Discharge Instructions Please refer to the electronic Patient Visit Report (Discharge Instructions) for additional information. Follow-Up Dr. Laverne Bourne - [facility] - June 02 at 12:00 Additional Copies To Laverne Bourne MD; Rachel Woodward
== END 2016-05-26 16:49 | disposition home or self-care (01) | DRG 546 ==
LOC: ENRESERVTM → ENRESERVDT → C.EDB 05:42 → C.4E 09:04
PROVIDERS: ADMIT Internal Medicine; ATTEND Internal Medicine
DX: M33.90 Dermatopolymyositis, unspecified, organ involvement unspecified (principal); E87.1 Hypo-osmolality and hyponatremia; N17.9 Acute kidney failure, unspecified; E86.0 Dehydration; R50.81 Fever presenting with conditions classified elsewhere; I10 Essential (primary) hypertension; E78.5 Hyperlipidemia, unspecified; E11.9 Type 2 diabetes mellitus without complications; J32.9 Chronic sinusitis, unspecified; T59.891S Toxic effect of other specified gases, fumes and vapors, accidental (unintentional), sequela; T59 Toxic effect of other gases, fumes and vapors; H93.19 Tinnitus, unspecified ear; G47.33 Obstructive sleep apnea (adult) (pediatric); F41.9 Anxiety disorder, unspecified; F32.9 Major depressive disorder, single episode, unspecified; F43.10 Post-traumatic stress disorder, unspecified; Z90.5 Acquired absence of kidney; Z79.899 Other long term (current) drug therapy

== ENCOUNTER → 2016-09-23 | Outpatient (CLI) | payer OTHER ==
[~2016-09-23] MED LIST changes: +ALLO300T2 PO; +ATOR-26 PO; -DYZC25/50 PO; -FENO145T26 PO; +FURO-85 PO; +GEMF600T PO; +INSDGIPEN SC; +INSU-698 SC; +MIRT15TA2 PO; -PANT40TA PO; +PRED10TA PO; +PRLSR20 PO; +SAXAGLIPTIN PO; +SERT-234 PO; +TRMCR515 TOP
== END | disposition home or self-care (01) ==
LOC: C.LABSPEC 16:31
PROVIDERS: ATTEND Podiatrist Foot & Ankle Surgery
DX: L97.509 Non-pressure chronic ulcer of other part of unspecified foot with unspecified severity (principal)

== ENCOUNTER → 2016-10-24 | Outpatient (CLI) | payer OTHER ==
--- NOTE | 2016-10-24 09:43 | DIAGNOSTIC IMAGING REPORT ---
RIGHT FOREFOOT MRI HISTORY: R FOOT Pain, please EVALUATE DIP JOINT OF right 3RD TOE FOR OSTEOMYELITIS Right TECHNIQUE: Multiplanar multisequence MRI of the right forefoot was performed without the use of intravenous contrast. COMPARISON STUDY: None. FINDINGS: There is edema-like marrow signal within the distal phalanx of the right third toe. However, this maintains a normal T1 signal intensity. No definite cortical destruction or fracture identified. The DIP joint is maintained. The remaining visualized osseous structures demonstrate a normal signal intensity. No significant soft tissue abnormality. No fluid collections identified. The flexor and extensor tendons appear intact. IMPRESSION: Marrow edema within the distal phalanx of the right third toe. This maintains a normal T1 signal intensity. Therefore, this does not meet criteria for osteomyelitis. This could represent an osteitis or posttraumatic change. Follow-up plain film examination of the third toe is recommended for further evaluation. Electronically signed by: Aleksandr Valadez M.D. 10/24/2016 9:41 AM Dictated Date/Time: 10/24/2016 9:30 AM
== END | disposition home or self-care (01) ==
LOC: C.MRI 07:43
PROVIDERS: ATTEND Podiatrist Foot & Ankle Surgery
DX: L03.115 Cellulitis of right lower limb (principal)

== ENCOUNTER → 2017-01-27 | Outpatient (CLI) | payer OTHER ==
[2017-01-27 16:33] LABS: CREATININE 1.53 mg/dl (0.60-1.40)
== END | disposition home or self-care (01) ==
LOC: C.LAB 14:27
PROVIDERS: ATTEND Podiatrist Foot & Ankle Surgery
DX: Z01.812 Encounter for preprocedural laboratory examination (principal); M20.42 Other hammer toe(s) (acquired), left foot; M20.41 Other hammer toe(s) (acquired), right foot; E11.49 Type 2 diabetes mellitus with other diabetic neurological complication; L97.521 Non-pressure chronic ulcer of other part of left foot limited to breakdown of skin; L97.522 Non-pressure chronic ulcer of other part of left foot with fat layer exposed; L97.511 Non-pressure chronic ulcer of other part of right foot limited to breakdown of skin

== ENCOUNTER → 2017-01-30 | Day surgery (SDC) | payer OTHER ==
[~2017-01-30] VITALS: Ht 185.4 cm; Wt 103.8 kg
[~2017-01-30] MED LIST changes: +NURSING VERBAL MED ORDER ONE; +VANCOMYCIN INJ 2,000 MG in SODIUM CHLORIDE 0.9% 500ML 500 ML IV SCH
[2017-01-30 06:53] VITALS: BP 120/80; PULSE 65; TEMP 36.6; O2SAT 95; Ht 185.4 cm; Wt 103.8 kg
[2017-01-30 07:50] LABS: CREATININE 1.49 mg/dl (0.60-1.40)
[2017-01-30 09:59] VITALS: BP 128/80; PULSE 55; O2SAT 97
[2017-01-30 10:13] VITALS: BP 130/84; PULSE 57; O2SAT 99
[2017-01-30 10:40] VITALS: BP 134/81; PULSE 57; TEMP 36.5; O2SAT 98
--- NOTE | 2017-02-01 10:17 | EDITING REQUIRED CODING QUERY ---
TREATMENT RENDERED WITHOUT A DIAGNOSIS To promote full compliance with coding requirements relating to patient care, physician participation is requested in all cases of medical billing coder uncertainty. Please assist us with the question(s) below: Coding Question: The patient is receiving IV VANCOMYCIN, as noted in the ORDER HISTORY of the record. Please document the diagnosis that is being addressed by the medication/treatment. Provider Response: Thank you Whitley Cornell
--- NOTE | 2017-03-17 08:23 | CODING QUERY NO DIAGNOSIS ---
TREATMENT RENDERED WITHOUT A DIAGNOSIS To promote full compliance with coding requirements relating to patient care, physician participation is requested in all cases of it application support analyst uncertainty. Please assist us with providing a diagnosis/symptom for the test(s) below: A diagnosis/symptom was not documented on your Order. A valid diagnosis/symptom is required to bill all insurances. Please remember that we are unable to code a diagnosis of rule out, probable, possible, questionable, or suspected. Tests/Procedure(s) that require a diagnosis: * IV VANCOMYCIN DIAGNOSIS: * CREATINE DIAGNOSIS: * ESR DIAGNOSIS: * WBC DIAGNOSIS: * DOS: 01/30/17 Provider Signature: Date: Thank you Whitley Cornell Health Information Management Once completed, please kindly fax back to [phone] For questions please call [phone]
== END | disposition home or self-care (01) ==
LOC: C.MTU 06:37
PROVIDERS: ATTEND Podiatrist Foot & Ankle Surgery
DX: L97.521 Non-pressure chronic ulcer of other part of left foot limited to breakdown of skin (principal); L97.522 Non-pressure chronic ulcer of other part of left foot with fat layer exposed; L97.511 Non-pressure chronic ulcer of other part of right foot limited to breakdown of skin

== ENCOUNTER 2017-01-31 07:13 | Day surgery (SDC) | payer OTHER ==
--- NOTE | 2017-01-30 16:28 | HISTORY & PHYSICAL EXAMINATION ---
DATE OF ADMISSION: 01/31/2017 HISTORY OF PRESENT ILLNESS: A 51-year-old male presents for preop evaluation with pain located in the right third toe ____ the condition is graded as a 7 on a 10 point scale in the right, gradually worsening over time. Pain is described as aching, sore and tender. He first noticed the condition several months ago. The patient was initially referred to our office from the [place] [facility] due to ulceration. He initially seen for treatment in our office for the ulceration since August of 2016. Until recently, that ulcer has been resolved. The patient is electing to proceed with surgery to prevent further ulcerations. He also notes an injury with a fracture during that time that also complicated the ulceration healing. The patient denies any recent exposure precipitating event for the condition. It was more of along the lines of gradual changes over time up until the point of the trauma. The patient notes the ulceration seemed to be from a digital contracture in his hammertoe which has developed slowly, associated signs and symptoms include redness, discoloration, pain and swelling, on the right tenderness. He notes ulceration has been closed for a few weeks. He also knows with increased activity, the problem and pressure causes the ulceration to develop again. Past treatment and tests for this including x-rays, ABIs, accommodative padding, accommodative shoes, debridements and rest. Due to the nature and severity of the discomfort, the patient is requesting surgical intervention. He has secondary concern of an ulceration also developing on the left foot. PAST SURGICAL HISTORY: No previous surgeries. PAST MEDICAL HISTORY: Cancer, sleep apnea, diabetes, gastrointestinal problems, hypertension, back problems, and neck problems. MEDICATIONS: Atenolol, furosemide, and amlodipine. ALLERGIES: DEMEROL. FAMILY HISTORY: Unremarkable. SOCIAL HISTORY: The patient admits to alcohol use, drinking described as social. REVIEW OF SYSTEMS: Unremarkable except chief complaint. PHYSICAL EXAMINATION: VITAL SIGNS: BP 140/100, temperature 96.5, height 6 feet 1 inch, weight 230 pounds, body mass index 30. CONSTITUTIONAL: The patient appears well developed and nourished with good attention to body grooming and habitus. HEAD AND FACE: Head is normocephalic and atraumatic without any gross head, face, or neck masses. EYES: Conjunctival and pupillary reaction to light and accommodation are normal. EARS, NOSE, MOUTH, AND THROAT: Unremarkable. NECK: Neck is supple. Trachea is midline without any adenopathy or crepitus palpable. CARDIOVASCULAR: Normal S1, S2 without murmur, gallops, rubs, or clicks noted. Cardiovascular exam is normal. RESPIRATORY: Chest is symmetric. No scars are visible. No port or pacemaker. LUNGS: Clear to auscultation bilaterally and equal. GASTROINTESTINAL EXAMINATION: Abdominal organs, bladder, and kidneys show no abnormalities, masses, tenderness, or rigidity. LYMPHATIC: No popliteal, inguinal, or supraclavicular lymphadenopathy noted. VASCULAR: DP 1/4, PT 1/4, digital hair is absent. Class findings consistent with peripheral vascular disease. DERMATOLOGIC: Inspection of the right foot shows no ulceration, there is a new ulceration that is present with preulcerative area in the left first MTPJ and interphalangeal joint of the left hallux. No redness. SubQ is exposed on the left foot over the interphalangeal joint with no tracking, no exposed bone. NEUROLOGICAL: Touch, pin, vibratory pain, proprioception sensations are normal. Epicritic sensation per Aparicio-Familia monofilament 5.07 is decreased. MUSCULOSKELETAL: Muscle tone is normal. Muscle strength is 5/5 all groups tested. Right fifth and left fifth shows adduction, inversion deformity. PIPJ contracture noted 2 through 5. Distal interphalangeal joint contracture 2 through 5 on the left and 2 through 4 on the right. Ankle brachial index toe pressures show a right digital pressure of 0.85; full report is available in chart. Upon review, ABIs are normal bilaterally except for mild disease noted in the left second digit. DATA: MRI of the right foot on 10/24/2006 shows marrow edema within the distal phalanx of the right third toe, maintains normal signal intensity, and does not meet the criteria for osteomyelitis. IMPRESSION: Hammertoes 2 through 5, diabetes with early neuropathy; ulceration, left first preulcerative breakdown metatarsophalangeal joint and subcutaneous fat level and interphalangeal joint of the hallux; history of ulceration to the right foot which is resolved; right third digit, MRI showing no evidence of osteomyelitis. PLAN: I reviewed conservative treatment for the hammertoe deformity and ulceration consisting of accommodative shoes, accommodative padding, nonsteroidals, palliative debridement, splints and orthotics, digital offloading and debridement as needed when the ulceration develops. Due to the nature and various conservative treatment and to prevent further breakdown, surgical procedures to be performed: 1. PIPJ arthroplasty with possible arthrodesis and DIPJ arthroplasty with possible arthrodesis of right third. 2. Capsulotomy, right third with relocation and release of the metatarsophalangeal joint. This will be performed under local with IV sedation as an outpatient at the surgery center. Procedure, risks and complications were fully reviewed with the patient. Consent form, foot diagram and illustration reviewed in all their entirety. All the patient's questions were answered. Complications were discussed in detail with the patient including pain, infection, swelling that may or may not be excessive, pins and needles feeling, numbness, metatarsalgia, excessive bleeding, delay or nonhealing of bone, delay or nonhealing of skin, enlarged scar, failure of the procedure, recurrence sitting or worsening of condition which may or may not require further surgery, adverse reaction to anesthesia, allergic reaction to suture or other implant material, loss of toe, foot, or leg, flail toe, stiff toe, short toe, elevated toe, transfer lesion or callus, peripheral neurovascular complications such as phlebitis, damage to nerves or vascular structures, severe or chronic pain, chronic nerve pain or damage, and general medical complications. The patient will be required to be in a surgery shoe for a minimum of 3-6 weeks and not return to dress shoes for 6-12 weeks depending on postop edema. The patient is aware this is an elective type procedure and I recommend a second opinion. The patient stated they understood. Consent form was signed, foot diagram issued to the patient. Verbal and written postop instructions were given. The patient will be required to be in a surgery shoe for a minimum of 8-10 weeks and not return to dress shoe for 10-12 weeks depending on postop edema. At the time of the preoperative appointment, debridement was taking care of the left hallux. Will continue to monitor this. He will receive vancomycin preoperatively due to history of ulceration on the right foot and will continue postoperative antibiotics. The patient will return to the office for postop check or sooner if medically necessary. Instructed to keep the dressing clean, dry, and intact until seen at the office.
[~2017-01-31] VITALS: Ht 185.4 cm; Wt 104.5 kg
[~2017-01-31 07:13] MED LIST changes: +CEFAZOLIN 2000MG IV PUSH 10 ML IV SCH; +LACTATED RINGER'S 1000ML IV SCH; -NURSING VERBAL MED ORDER ONE; -VANCOMYCIN INJ 2,000 MG in SODIUM CHLORIDE 0.9% 500ML 500 ML IV SCH
[2017-01-31 07:50] VITALS: BP 127/86; PULSE 80; TEMP 36.7; O2SAT 95; Ht 185.4 cm; Wt 104.5 kg
[2017-01-31] MEDS ORDERED: DEXAMETHASONE SOD INJ 4 MG/ML VIAL ONE (08:12)
[2017-01-31] MEDS ORDERED: LIDOCAINE HCL 2% 2 ML VIAL (20MG/ML) ONE (08:12)
[2017-01-31] MEDS ORDERED: PROPOFOL IV EMULSION 10 MG/ML 20 ML VIAL IV ONE ×2 (08:12→09:41)
[2017-01-31] MEDS ORDERED: ONDANSETRON INJ 2 MG/ML 2 ML VIAL ONE (08:12)
[2017-01-31] MEDS ORDERED: MIDAZOLAM HCL 1 MG/ML 2ML VIAL ONE (08:12)
[2017-01-31] MEDS ORDERED: FENTANYL CITRATE INJ 50 MCG/1 ML 2 ML VIAL ONE (08:12)
[2017-01-31] MEDS ORDERED: SODIUM CHLORIDE 0.9% 1000ML 1,000 ML IV SCH ×2 (08:44)
--- NOTE | 2017-01-31 08:44 | History & Physical Bridge Note ---
H&P Re-Evaluation Bridge Note: I have examined the patient, reviewed the History & Physical and in the interval since the performance of the History & Physical I have noted the following changes of clinical significance: No changes noted
[2017-01-31] MEDS ORDERED: BUPIVACAINE 0.5 % 5 MG/1 ML MPF 30ML VIAL ONE (08:47)
[2017-01-31] MEDS ORDERED: ATROPINE SULFATE 0.1 MG/ML 5ML SYR IV PRN (09:45)
[2017-01-31] MEDS ORDERED: EpHEDrine SULFATE INJ 50 MG/ML AMP IV PRN (09:45)
[2017-01-31] MEDS ORDERED: LABETALOL HCL IV 5 MG/ML 20ML IV PRN (09:45)
[2017-01-31] MEDS ORDERED: HYDROmorphone INJ 0.5 MG/0.5 ML SYR IV PRN (09:45)
[2017-01-31] MEDS ORDERED: ONDANSETRON INJ 2 MG/ML 2 ML VIAL IV PRN (09:45)
[2017-01-31] MEDS ORDERED: FENTANYL CITRATE INJ 50 MCG/1 ML 2 ML VIAL IV PRN (09:45)
[2017-01-31] MEDS ORDERED: MEPERIDINE HCL 25 MG/ML CARP IV PRN (09:45)
--- NOTE | 2017-01-31 11:16 | Anesthesiology Progress Note ---
Anesthesia Post Op Note Date & Time Jan 31, 2017 at 11:16 Vital Signs Pain Intensity: 2 Vital Signs Past 12 Hours Date Time Temp Pulse Resp B/P (MAP) Pulse Ox O2 Delivery O2 Flow Rate FiO2 01/31/17 11:06 69 14 97 01/31/17 11:06 68 14 01/31/17 11:05 130/71 01/31/17 11:01 65 11 01/31/17 11:01 66 11 96 01/31/17 11:00 118/73 01/31/17 10:56 63 15 99 01/31/17 10:56 64 15 01/31/17 10:55 129/75 01/31/17 10:55 36.4 67 16 129/75 (89) 95 Room Air 01/31/17 10:51 67 14 99 01/31/17 10:51 64 14 01/31/17 10:50 129/72 01/31/17 10:50 129/72 01/31/17 10:48 65 12 01/31/17 10:48 67 12 99 01/31/17 10:48 65 12 01/31/17 10:48 67 12 99 01/31/17 10:45 126/74 01/31/17 10:45 126/74 01/31/17 10:43 67 20 01/31/17 10:43 66 20 99 01/31/17 10:43 66 20 99 01/31/17 10:43 67 20 01/31/17 10:40 124/71 01/31/17 10:40 124/71 01/31/17 10:38 36.3 64 15 118/72 (86) 99 Oxymask 10 01/31/17 10:38 64 15 01/31/17 10:38 64 15 01/31/17 10:38 64 15 118/72 99 01/31/17 10:38 64 15 118/72 99 01/31/17 07:50 36.7 80 20 127/86 (100) 95 Room Air Notes Mental Status: alert / awake / arousable, participated in evaluation Pt Amnestic to Procedure: Yes Nausea / Vomiting: adequately controlled Pain: adequately controlled Airway Patency, RR, SpO2: stable & adequate BP & HR: stable & adequate Hydration State: stable & adequate Anesthetic Complications: no major complications apparent
--- NOTE | 2017-01-31 11:32 | DIAGNOSTIC IMAGING REPORT ---
R FOOT 2 VIEWS CLINICAL HISTORY: Intraoperative fluoroscopic images. COMPARISON STUDY: Right forefoot MRI October 24, 2016. Fluoroscopy time: 13.4 seconds. FINDINGS: 2 fluoroscopic images demonstrate fusion of the proximal interphalangeal joint of the right third toe with K wire fixation. Hardware is intact. There are no unexpected radiopaque foreign bodies. IMPRESSION: Fluoroscopic images demonstrating fusion of the proximal interphalangeal joint of the right third toe. Electronically signed by: Rambo Rodriguez M.D. 01/31/2017 11:30 AM Dictated Date/Time: 01/31/2017 11:29 AM
[2017-01-31 11:37] VITALS: BP 121/61; PULSE 66; TEMP 36.6; O2SAT 95
--- NOTE | 2017-01-31 11:47 | OPERATIVE REPORT ---
DATE OF OPERATION: 01/31/2017 PREOPERATIVE DIAGNOSES: 1. History of ulceration, right third digit. 2. Capsulitis, right third digit. 3. Clawtoe deformity, right third. 4. Non-insulin dependent diabetes mellitus with early peripheral neuropathy. POSTOPERATIVE DIAGNOSES: Same. PROCEDURES: 1. PIPJ arthroplasty with arthrodesis, right third. 2. DIPJ arthroplasty with arthrodesis, right third. 3. Tenotomy flexor digitorum longus. 4. Tenotomy flexor digitorum brevis, right third digit. 5. Capsulotomy with relocation metatarsophalangeal joint, right third MTPJ. SURGEON: Dr. Ordoñez. ANESTHESIA: IV with local sedation, preoperative block given 0.5 mL of Marcaine plain, total of 30 mL. HEMOSTASIS: Pneumatic ankle tourniquet inflated to a level of 250 mmHg for a total tourniquet time of 41 minutes. MATERIALS: 2-0, 3-0 Vicryl, 4-0 nylon and an extra implant. HISTOPATHOLOGY SPECIMENS: Sent. COMPLICATIONS: None. CONDITION: The patient tolerated the procedure and anesthesia well without complications, transferred to recovery room with vital signs stable. OPERATION AND FINDINGS: PROCEDURE: The patient was brought to the OR and placed on the operating table in supine position. Upon completion of IV sedation by the anesthesia department, a local field block was performed with 30 mL 0.5% Marcaine plain. The extremity was scrubbed, prepped and draped in the usual aseptic fashion. Attention was directed to the right third digit where curvilinear incision was made across the metatarsophalangeal joint extending out onto the right third digit. A tenotomy was performed on the plantar aspect of the flexor digitorum longus and flexor digitorum brevis through a stab incision at the level of the middle phalanx. Attention was then directed dorsally. A curvilinear incision was dissected down metatarsophalangeal joint and release was performed over this area extending out. The tenotomy was performed dorsal extensor hallucis longus revealing the proximal phalanx, head of the proximal phalanx and base of middle phalanx were removed as well as the head of the middle phalanx and the base of the proximal phalanx. All cartilage was removed over this area. An extra implant was crossing placed in good anatomic alignment proximal metatarsophalangeal joint, a 0.045 K-wire was retrograded through the toe and across the DIP joint. Sharp dissection with a McClamary elevator and 15 blade to release metatarsophalangeal joint and 0.045 K-wire was taken across the metatarsophalangeal joint in plantar flexion. The wound was copiously lavaged with normal saline. Closure began in the deep structures using 2-0 Vicryl. Superficial deep structures were closed using 3-0 Vicryl. Skin margins were closed using 4-0 nylon in a simple interrupted fashion. Pneumatic ankle tourniquet was released. There was a hyperemic espitia noted to all digits. There was delayed uptake to the right third digit, which will be checked postoperatively again. Dry sterile compressive dressing consisting of Betadine soaked in Adaptic, 4 x 4's, Amarilis and an Andrae was applied. The patient tolerated the procedure and anesthesia well without complications. I attest to the content of the Intraoperative Record and any orders documented therein. Any exception s are noted below.
--- NOTE | 2017-01-31 11:49 | DIAGNOSTIC IMAGING REPORT ---
R FOOT MIN 3 VIEWS ROUTINE HISTORY: 51 years-old Male postop postoperative exam. Pinning of the right third digit COMPARISON: Spot fluoroscopic images of the right foot 01/31/2017 TECHNIQUE: 3 views of the right foot FINDINGS: Status post arthroplasty of the right third PIP joint. Status post pinning of the third PIP and DIP joints with a second pin fixating the metatarsal phalangeal joint. Expected soft tissue swelling and deep tissue air noted at the surgical site. Alignment is satisfactory. No acute fracture or dislocation. Additional degenerative changes of the remaining interphalangeal joints and first metatarsal-phalangeal joint. Type II accessory navicular. Os trigonum. Moderate spurring about the calcaneus. IMPRESSION: 1. No acute fracture or dislocation. 2. Postoperative changes of the third digit as above with satisfactory alignment. No complication identified. The above report was generated using voice recognition software. It may contain grammatical, syntax or spelling errors. Electronically signed by: Morgan Pabon M.D. 01/31/2017 11:47 AM Dictated Date/Time: 01/31/2017 11:45 AM
[2017-01-31 12:07] VITALS: BP 126/74; PULSE 68; TEMP 36.4; O2SAT 97
== END 2017-01-31 12:27 | disposition home or self-care (01) ==
LOC: C.ACU 07:13
PROVIDERS: ATTEND Podiatrist Foot & Ankle Surgery
DX: M20.5X1 Other deformities of toe(s) (acquired), right foot (principal); M76.891 Other specified enthesopathies of right lower limb, excluding foot; I10 Essential (primary) hypertension; G47.33 Obstructive sleep apnea (adult) (pediatric); F90.9 Attention-deficit hyperactivity disorder, unspecified type; E11.9 Type 2 diabetes mellitus without complications; K21.9 Gastro-esophageal reflux disease without esophagitis; E66.9 Obesity, unspecified; G62.9 Polyneuropathy, unspecified

== ENCOUNTER → 2017-06-16 | Outpatient (CLI) | payer OTHER ==
[~2017-06-16] MED LIST changes: -CEFAZOLIN 2000MG IV PUSH 10 ML IV SCH; -INSDGIPEN SC; -INSU-698 SC; -LACTATED RINGER'S 1000ML IV SCH; -PRED10TA PO; -SERT-234 PO
== END | disposition home or self-care (01) ==
LOC: C.LABSPEC 16:58
PROVIDERS: ATTEND Podiatrist Foot & Ankle Surgery
DX: L60.0 Ingrowing nail (principal)

== ENCOUNTER 2019-09-21 14:46 | Observation (INO) ==
[2019-09-21] MEDS ORDERED: ASPIRIN CHEW 324 MG PO STA (15:09)
--- NOTE | 2019-09-21 15:16 | Emergency Department Note ---
History of Present Illness General Chief complaint: Chest Pain Stated complaint: CHEST PAIN, SOB Time Seen by Provider: 09/21/19 14:59 Source: patient Limitations: no limitations History of Present Illness Provider complaint: Chest pain Onset (ago): month(s) Location: chest and right Radiation: non-radiation Severity: moderate Pain Consistency: + intermittent Maximum Pain Intensity: 5 Quality: + other (Pressure) Exacerbated By: + other (Exertion) Associated symptoms: + diaphoresis and + shortness of breath; no cough, no fever/chills and no nausea/vomiting This is a 54-year-old male with a history of diabetes, hyperlipidemia, hypertension presenting with chest discomfort. The patient states that it started about a month ago. It was intermittent. It is worse with exertion. Over the past week he has noticed that it happens several times a day. When he climbs a flight of stairs his heart rate goes up to 115 and he feels very short of breath, sweaty and develops chest pain. He describes the chest pain as a pressure. It is located in the middle of his chest and toward the left side. He states it does not radiate to his arms but he cannot really tell because he has chronic shoulder problems. He did notice about a month ago that the discomfort seemed to start in his left arm. He denies any leg swelling or hist ory of PE. He does have a prior history of cancer. He states he had a treadmill stress test about 3 years ago. Home Medications Home Medications Medication Instructions Recorded Confirmed Type Kidney Korrect 1 dose PO DAILY 09/21/19 09/21/19 History Q-Evail 100 100 mg PO DAILY 09/21/19 09/21/19 History allopurinol 300 mg PO DAILY 09/21/19 09/21/19 History alogliptin 12.5 mg PO DAILY 09/21/19 09/21/19 History alpha lipoic acid (bulk) [Lipoic 1 ea MISCELLANEOUS DAILY 09/21/19 09/21/19 History Acid] aspirin 81 mg PO DAILY 09/21/19 09/21/19 History atenolol 12.5 mg PO DAILY 09/21/19 09/21/19 History atorvastatin 40 mg PO DAILY 09/21/19 09/21/19 History gemfibrozil 600 mg PO DAILY 09/21/19 09/21/19 History lisinopril 5 mg PO DAILY 09/21/19 09/21/19 History metformin 1,000 mg PO DAILY 09/21/19 09/21/19 History multivitamin 2 tab PO DAILY 09/21/19 09/21/19 History omega 8-lbl-byh-fish oil [Fish Oil] 2 cap PO DAILY 09/21/19 09/21/19 History oregano oil 0 mg PO DAILY 09/21/19 09/21/19 History triamcinolone acetonide 1 applic TOPICAL BID 09/21/19 09/21/19 History zinc 50 mg PO DAILY 09/21/19 09/21/19 History Allergies Allergy/AdvReac Type Severity Reaction Status Date / Time vancomycin Allergy Intermediate RASH Verified 09/21/19 15:49 meperidine AdvReac Intermediate hallucinati Verified 09/21/19 15:49 ons Past Med/Surg History Medical History Jjfaidm-Cqryg-Tvbrm disease-like deformity of foot Diabetes Hyperlipidemia Hypertension Social History Smoking Status: Never smoker Feels Safe at Home: Yes Review of Systems See HPI for pertinent positives & negatives. and A total of 10 systems reviewed and were otherwise negative Physical Exam Vital Signs Vital Signs - 24 hr 09/21/19 14:50 09/21/19 16:13 09/21/19 16:27 Temperature 36.7 C Temperature Source Oral Pulse Rate 91 H Pulse Rate [Right Finger] 74 76 Pulse Rhythm Regular Pulse Rhythm [Right Finger] Pulse Strength Normal Respiratory Rate 18 15 16 Respiratory Effort / Characteristics Non-Labored Spontaneous Respiratory Depth Normal Respiratory Pattern Regular Blood Pressure 183/126 H Blood Pressure [Left Arm] 163/100 H 150/102 H Blood Pressure Mean 145 Blood Pressure Mean [Left Arm] 121 118 Blood Pressure Position Sitting Pulse Oximetry 97 97 97 Oxygen Delivery Method Room Air Sepsis Recent Fever Within 48 Hours No Sepsis New/Unexplained Change in Mental Status No Sepsis Action Taken by Nursing No Action Required 09/21/19 18:15 Temperature Temperature Source Pulse Rate Pulse Rate [Right Finger] 66 Pulse Rhythm Pulse Rhythm [Right Finger] Regular Pulse Strength Respiratory Rate 21 Respiratory Effort / Characteristics Respiratory Depth Respiratory Pattern Blood Pressure Blood Pressure [Left Arm] 149/85 H Blood Pressure Mean Blood Pressure Mean [Left Arm] 106 Blood Pressure Position Pulse Oximetry 96 Oxygen Delivery Method Sepsis Recent Fever Within 48 Hours Sepsis New/Unexplained Change in Mental Status Sepsis Action Taken by Nursing Constitutional: Vital signs reviewed. Eyes: Pupils are equal round reactive to light. Conjunctiva are noninjected. ENT: Pharynx is clear without erythema or exudate. Mucous membranes are moist. Neck supple without meningeal signs. Respiratory: Clear to auscultation bilaterally. Breath sounds are equal bilaterally. Cardiovascular: Regular rate and rhythm. No rubs or gallops. GI: Soft, nondistended and nontender. Bowel sounds are present. Musculoskeletal: No peripheral edema. No lower extremity tenderness. Integumentary: No cyanosis. or jaundice. Neurological: The patient is awake and alert. No focal deficits. Psychiatric: Normal affect. Not anxious appearing. Course Administered Medications Nitroglycerin (Nitrostat) 0.4 mg SL UD PRN PRN Reason: Chest Pain Stop: 10/21/19 15:08 Last Admin: 09/21/19 16:14 Dose: 0.4 mg Documented by: [id number] Admin: 09/21/19 15:23 Dose: 0.4 mg Documented by: [id number] Discontinued Medications Al Hydrox/Mg Hydrox/Simethicone () Confirm Administered Dose 1 dose PO .STK-MED ONE Stop: 09/21/19 17:22 Last Admin: 09/21/19 17:46 Dose: 1 dose Documented by: [id number] Aspirin (Aspirin) 324 mg PO NOW STA Stop: 09/21/19 15:10 Last Admin: 09/21/19 15:23 Dose: 324 mg Documented by: [id number] Famotidine (Pepcid 20mg Iv Push) Confirm Administered Dose 20 mg IV .STK-MED ONE Stop: 09/21/19 17:23 Last Admin: 09/21/19 17:46 Dose: 20 mg Documented by: [id number] Fentanyl Citrate (Fentanyl Citrate) 50 mcg IV NOW STA Stop: 09/21/19 16:36 Last Admin: 09/21/19 16:41 Dose: 50 mcg Documented by: [id number] Ondansetron HCl (Zofran) 4 mg IV NOW STA Stop: 09/21/19 16:36 Last Admin: 09/21/19 16:41 Dose: 4 mg Documented by: [id number] Medical Decision Making Differential Diagnosis Unstable angina, [place], GERD, pericarditis, anemia Medical Records Attestation: I reviewed the patient's medical records. I did perform a limited focused review of portions of the patient's old chart on the electronic medical record. The patient has had no recent pertinent visits to this hospital. Home Medications Current Medication List: was personally reviewed by me Laboratory Data Attestation: I reviewed the patient's lab results. Result diagrams: 09/21/19 15:15 09/21/19 15:15 Lab Results 09/21/19 09/21/19 09/21/19 Range/Units 15:15 15:15 15:15 WBC 4.81 (4.8-10.8) K/uL RBC 5.04 (4.7-6.1) M/uL Hgb 15.5 (14.0-18.0) g/dL Hct 44.1 (42-52) % MCV 87.5 (80-100) fL MCH 30.8 (25-34) pg MCHC 35.1 (32-36) g/dL RDW Std Deviation 41.9 (36.4-46.3) fL RDW Coeff of Az 13.2 (11.5-14.5) % Plt Count 165 (130-400) K/uL MPV 9.6 (7.4-10.4) fL Immature Gran % (Auto) 0.4 % Neut % (Auto) 42.1 % Lymph % (Auto) 48.4 % [place] % (Auto) 6.0 % Eos % (Auto) 2.9 % Baso % (Auto) 0.2 % Neut # (Auto) 2.02 (1.4-6.5) K/uL Lymph # (Auto) 2.33 (1.2-3.4) K/uL [place] # (Auto) 0.29 (0.11-0.59) K/uL Eos # (Auto) 0.14 (0-0.5) K/uL Baso # (Auto) 0.01 (0-0.2) K/uL Immature Gran # (Auto) 0.02 (0.00-0.02) K/uL PT 11.1 (9.0-12.0) Seconds INR 1.1 (0.9-1.1) APTT 27.6 (21.0-31.0) Seconds PTT Ratio 1.0 D-Dimer (0-500) ug/L FEU Sodium 138 (136-145) mmol/L Potassium 4.0 (3.5-5.1) mmol/L Chloride 103 (98-107) mmol/L Carbon Dioxide 27 (21-32) mmol/L Anion Gap 8.0 (3-11) BUN 25 H (7-18) mg/dl Creatinine 1.49 H (0.6-1.4) mg/dl Est Cr Clr Drug Dosing 69.8 ml/min Est GFR ( Amer) 59.9 Est GFR (Non-Af Amer) 51.7 BUN/Creatinine Ratio 16.5 (10-20) Glucose 179 H (70-99) mg/dl Calcium 9.7 (8.5-10.1) mg/dl Total Bilirubin 0.3 (0.2-1) mg/dl AST 28 (15-37) U/L ALT 39 (12-78) U/L Alkaline Phosphatase 69 (45-117) U/L POC Troponin I (0-0.045) ng/ml Troponin I < 0.015 (0-0.045) ng/ml Total Protein 7.7 (6.4-8.2) gm/dl Albumin 3.8 (3.4-5.0) gm/dl Globulin 3.9 (2.5-4.0) gm/dl Albumin/Globulin Ratio 1.0 (0.9-2) 09/21/19 09/21/19 09/21/19 Range/Units 15:15 15:19 17:56 WBC (4.8-10.8) K/uL RBC (4.7-6.1) M/uL Hgb (14.0-18.0) g/dL Hct (42-52) % MCV (80-100) fL MCH (25-34) pg MCHC (32-36) g/dL RDW Std Deviation (36.4-46.3) fL RDW Coeff of Az (11.5-14.5) % Plt Count (130-400) K/uL MPV (7.4-10.4) fL Immature Gran % (Auto) % Neut % (Auto) % Lymph % (Auto) % [place] % (Auto) % Eos % (Auto) % Baso % (Auto) % Neut # (Auto) (1.4-6.5) K/uL Lymph # (Auto) (1.2-3.4) K/uL [place] # (Auto) (0.11-0.59) K/uL Eos # (Auto) (0-0.5) K/uL Baso # (Auto) (0-0.2) K/uL Immature Gran # (Auto) (0.00-0.02) K/uL PT (9.0-12.0) Seconds INR (0.9-1.1) APTT (21.0-31.0) Seconds PTT Ratio D-Dimer < 190 (0-500) ug/L FEU Sodium (136-145) mmol/L Potassium (3.5-5.1) mmol/L Chloride (98-107) mmol/L Carbon Dioxide (21-32) mmol/L Anion Gap (3-11) BUN (7-18) mg/dl Creatinine (0.6-1.4) mg/dl Est Cr Clr Drug Dosing ml/min Est GFR ( Amer) Est GFR (Non-Af Amer) BUN/Creatinine Ratio (10-20) Glucose (70-99) mg/dl Calcium (8.5-10.1) mg/dl Total Bilirubin (0.2-1) mg/dl AST (15-37) U/L ALT (12-78) U/L Alkaline Phosphatase (45-117) U/L POC Troponin I < 0.03 (0-0.045) ng/ml Troponin I < 0.015 (0-0.045) ng/ml Total Protein (6.4-8.2) gm/dl Albumin (3.4-5.0) gm/dl Globulin (2.5-4.0) gm/dl Albumin/Globulin Ratio (0.9-2) Imaging Data Radiologist's Impression: XR chest 1V portable HISTORY: 54 years-old Male Chest Pain acute atypical chest pain COMPARISON: None TECHNIQUE: Portable AP view of the chest FINDINGS: Cardiomediastinal and hilar silhouettes are within normal limits. There is no pneumothorax, pleural effusion, airspace consolidation or overt pulmonary edema. Bones of the chest appear grossly intact. Degenerative changes are noted within the shoulders and spine. IMPRESSION: No acute process. ACT 112: Negative or not required by law. The above report was generated using voice recognition software. It may contain grammatical, syntax or spelling errors. Electronically signed by: Morgan Pabon M.D. 09/21/2019 3:46 PM Dictated: 09/21/19 154 Transcribed: 09/21/191541 ECG Data Attestation: I personally reviewed and interpreted this ECG as follows: Indication: + chest pain Rate (beats per minute): 83 Rhythm: + normal sinus ECG [place]: + Normal ECG ST segments: no ST elevation ECG Findings: + PVCs (Multiple PVCs with fusion beat) Additional Comments: Repeat twelve-lead EKG performed at 1638 per my interpretation shows normal sinus rhythm at a rate of 71 bpm. There is no evidence of acute ST elevation or depression. No PVCs are noted. No significant change other than the absence of PVCs compared to earlier EKG. Blood Pressure Blood Pressure Findings: Elevated blood pressure Blood Pressure Disposition: further management by hospitalist [facility] Narrative I did evaluate the patient as noted above. The patient is presenting with exertional chest pain concerning for coronary artery disease. IV access was established. I did place an order for continuous cardiac monitoring. The monitor showed normal sinus rhythm at a rate of 93 bpm with multiple PVCs. I did order and personally review the patient's 12-lead EKG as described above. He has no signs of acute ischemia. He does have multiple PVCs and a fusion b eat. He does state he has about 5 out of 10 chest discomfort at this time. He was given sublingual nitroglycerin. He was given aspirin 324 mg p.o. I did order and personally reviewed the images of the patient's chest x-ray as described above. His chest x-ray is unremarkable. I did order and review the patient's blood work as noted in the electronic medical record. CBC does not show any evidence of anemia or leukocytosis. Electrolytes are unremarkable. Creatinine is elevated at baseline at 1.49. Troponin is negative. D-dimer is negative. I did reevaluate the patient. After 2 sublingual nitroglycerin the patient is still having pressure in his chest. I did order a repeat twelve-lead EKG which per my interpretation shows no evidence of acute ischemia. He was given fentanyl 50 mcg IV and Zofran 4 mg IV. This made him very dizzy but he stated that it felt like he was getting somewhat better. I did recommend hospitalization for further care and evaluation. I did discuss the case with the hospitalist and disease case manager. Impression & Plan Chest pain, exertional Discharge Plan Visit Data Chief Complaint: Chest Pain Stated Complaint: CHEST PAIN, SOB ED Provider: Peter Friend Discharge Problem: Chest pain, exertional Patient Disposition: Being Evaluated by Hospitalist Forms Stand Alone Forms: My [facility] Prescriptions Prescriptions: No Action atorvastatin 80 mg Tablet 40 mg PO DAILY RF: 0 atenolol 25 mg Tablet 12.5 mg PO DAILY RF: 0 triamcinolone acetonide 0.1 % Cream 1 applic TOPICAL BID RF: 0 gemfibrozil 600 mg Tablet 600 mg PO DAILY RF: 0 allopurinol 300 mg Tablet 300 mg PO DAILY RF: 0 multivitamin Tablet 2 tab PO DAILY RF: 0 metformin 500 mg Tablet 1,000 mg PO DAILY RF: 0 aspirin 81 mg Tablet,Delayed Release (Dr/Ec) 81 mg PO DAILY RF: 0 zinc 50 mg Tablet 50 mg PO DAILY RF: 0 lisinopril 5 mg Tablet 5 mg PO DAILY RF: 0 alpha lipoic acid (bulk) [Lipoic Acid] Powder 1 ea MISCELLANEOUS DAILY RF: 0 oregano oil 1,500 mg Capsule 0 mg PO DAILY RF: 0 omega 5-ofa-olz-fish oil [Fish Oil] 1,000 mg (120 mg-180 mg) Capsule 2 cap PO DAILY RF: 0 alogliptin 12.5 mg Tablet 12.5 mg PO DAILY RF: 0 Kidney Korrect 1 dose PO DAILY RF: 0 Q-Evail 100 100 mg PO DAILY RF: 0 Referrals Referrals: Eliza Resendez PA-C [Primary Care Provider] -
[2019-09-21] MEDS: NITROGLYCERIN SL 0.4 MG/TAB TAB SL PRN ×2 (15:23→16:14)
[2019-09-21 15:27] LABS: Basophils # (auto) 0.01 K/uL (0-0.2); Basophils % (auto) 0.2 %; Eosinophils # (auto) 0.14 K/uL (0-0.5); Eosinophils % (auto) 2.9 %; Hematocrit (blood only) 44.1 % (42-52); Hemoglobin 15.5 g/dL (14.0-18.0); Immature Granulocytes # (auto) 0.02 K/uL (0.00-0.02); Immature Granulocytes % (auto) 0.4 %; Lymphocytes # (auto) 2.33 K/uL (1.2-3.4); Lymphocytes % (auto) 48.4 %; Mean Corpuscular Hemoglobin 30.8 pg (25-34); Mean Corpuscular Hgb Conc 35.1 g/dL (32-36); Mean Corpuscular Volume 87.5 fL (80-100); Mean Platelet Volume 9.6 fL (7.4-10.4); Monocytes # (auto) 0.29 K/uL (0.11-0.59); Neutrophils # (auto) 2.02 K/uL (1.4-6.5); Neutrophils % (auto) 42.1 %; Platelet Count 165 K/uL (130-400); RDW Coefficient of Variation 13.2 % (11.5-14.5); RDW Standard Deviation 41.9 fL (36.4-46.3); Red Blood Count 5.04 M/uL (4.7-6.1); White Blood Count 4.81 K/uL (4.8-10.8)
[2019-09-21 15:38] LABS: INR 1.1 (0.9-1.1); Partial Thromboplastin Time 27.6 Seconds (21.0-31.0); Prothrombin Time 11.1 Seconds (9.0-12.0)
[2019-09-21 15:46] LABS: Alanine Aminotransferase 39 U/L (12-78); Albumin Level 3.8 gm/dl (3.4-5.0); Aspartate Aminotransferase 28 U/L (15-37); BUN Creatinine Ratio 16.5 (10-20); Blood Urea Nitrogen 25 mg/dl (7-18); Calcium 9.7 mg/dl (8.5-10.1); Carbon Dioxide 27 mmol/L (21-32); Chloride 103 mmol/L (98-107); Creatinine Clr Calc Pharmacy 69.8 ml/min; Est GFR (African American) 59.9; Est GFR (Non-African American) 51.7; Glucose 179 mg/dl (70-99); Sodium 138 mmol/L (136-145)
[2019-09-21 15:47] LABS: D Dimer < 190 ug/L FEU (0-500)
--- NOTE | 2019-09-21 15:48 | XRay Report ---
XR chest 1V portable HISTORY: 54 years-old Male Chest Pain acute atypical chest pain COMPARISON: None TECHNIQUE: Portable AP view of the chest FINDINGS: Cardiomediastinal and hilar silhouettes are within normal limits. There is no pneumothorax, pleural e ffusion, airspace consolidation or overt pulmonary edema. Bones of the chest appear grossly intact. D egenerative changes are noted within the shoulders and spine. IMPRESSION: No acute process. ACT 112: Negative or not required by law. The above report was generated using voice recognition software. It may contain grammatical, syntax o r spelling errors. Electronically signed by: Morgan Pabon M.D. 09/21/2019 3:46 PM
[2019-09-21 15:50] LABS: Alkaline Phosphatase 69 U/L (45-117); Bilirubin,Total 0.3 mg/dl (0.2-1); Globulin 3.9 gm/dl (2.5-4.0); Total Protein 7.7 gm/dl (6.4-8.2); Troponin I < 0.015 ng/ml (0-0.045)
[2019-09-21] MEDS ORDERED: fentaNYL citrate 100 MCG/2 ML VIAL IV STA (16:35)
[2019-09-21] MEDS ORDERED: ONDANSETRON INJ 2 MG/ML 2 ML VIAL IV STA (16:35)
--- NOTE | 2019-09-21 17:14 | History & Physical Report ---
Date of Service September 21, 2019 Assessment & Plan (1) Atypical chest pain: Chest pain @ night appears to be positional and most consistent GERD/esophageal motility related - helped with GI cocktail and pepcid IV given in ER (see treatment below). Continue Some pain on palpation and multiple myalgias mentioned - will stop gemfibrozil to see if this helps and get lipid panel in AM to see if he needs another triglyceride lowering medication Alternative diagnosis of pericarditis although no changes on his EKG, CRP/ESR added to labs and will get echocardiogram given also having SOBOE (2) GERD (gastroesophageal reflux disease): Famotidine and GI cocktail given in the ER. He had good resolution of the symptoms with a GI cocktail. Therefore I suspect this is the cause of his atypical chest pain as above especially the one he describes at night. Pantoprazole 40mg Now then QAM (3) Diabetes: Hold metformin and alogliptin. HbA1c in a.m. (previously 8 as per patient recollection) Start Lantus 5 units twice daily NovoLog correction 45, carb ratio 15, aim 110-140 (4) Shortness of breath on exertion: Shortness of breath / fatigue on exertion This is more concerning symptom for unstable angina. Could consider stress testing but will initially get TTE and potentially stress test could be set up as an outpatient if has ongoing symptoms despite treatment of reflux. (5) PVC (premature ventricular contraction): Multifocal PVCs on initial EKG. Unclear whether this may be causing some of his symptoms. Monitor on telemetry to assess burden. Consider cardiology consult if excessive. (6) Hyperlipidemia: Continue atorvastatin. Stop gemfibrozil given myalgias (see below). (7) Hypertension: Continue his usual atenolol 12.5 mg p.o. daily, lisinopril 5 mg p.o. daily. (8) Myalgia: Concerning combination of gemfibrozil and atorvastatin possible causing his myalgias. (9) Myefxyo-Vchzk-Wyhyr disease-like deformity of foot: Continue brace on right lower extremity (10) DVT prophylaxis: No chemical or mechanical DVT prophylaxis warranted. Encourage mobility to reduce risk of DVTs. Admission and Anticipated Discharge Date Admission Date: 09/21/2019 Anticipated date of discharge: 09/22/19 History of Present Illness Chief Complaint: Atypical chest pain Primary Care Provider: Eliza Resendez PA-C Cam Kuhn is a 54-year-old male who presents with multiple concerns but mainly chest pain and fatigue. He describes 2 separate pains but jumps between the them. The first appears at nighttime when he is sleeping and appears positional as he lies down. Each night it is became more severe especially on the left side when lying down. Ongoing for months but becoming more frequent and severe. Last night it was so severe this is what prompted his visit to the ER today. He is unable to give a severity score as he describes it more of a pressure than a pain. Associated heart palpitations and sudden jerking movements of his upper body. No association with diaphoresis or nausea. The second chest pressure is mostly fatigue and feeling out of breath on minimal exertion or during the day. This too is becoming more frequent and more severe. Nonpleuritic. Occurs on exertion and is relieved with rest. Does not know if it radiates as he has multiple joint aches elsewhere including cervical radiculopathies. No prior cardiovascular disease. He does have heartburn which also has become more frequent lately. More recently he does not even have to eat anything spicy. Comes on a few days at a time. Some days he is not getting a stool. Taking antacids approximately half the time he gets symptoms. He does not feel the symptoms above are related to his heartburn which is more of a burning sensation in his throat. He reports multiple chronic pains with lumbar spondylosis, C5/6 radiculopathy, carpal tunnel syndrome, headaches, bilateral shoulder pains. In the ER he was treated for acute coronary syndrome with aspirin, nitroglycerin which did not improve his symptoms. He received fentanyl which made him "loopy" and confused -but did not significantly impact his pain. Once I sat him up for 5 to 10 minutes after lying down his pain significantly decreased. Allergies Allergy/AdvReac Type Severity Reaction Status Date / Time vancomycin Allergy Intermediate RASH Verified 09/21/19 15:49 meperidine AdvReac Intermediate hallucinati Verified 09/21/19 15:49 ons Home Medications Home Medications Medication Instructions Recorded Confirmed Type Kidney Korrect 1 dose PO DAILY 09/21/19 09/21/19 History Q-Evail 100 100 mg PO DAILY 09/21/19 09/21/19 History allopurinol 300 mg PO DAILY 09/21/19 09/21/19 History alogliptin 12.5 mg PO DAILY 09/21/19 09/21/19 History alpha lipoic acid (bulk) [Lipoic 1 ea MISCELLANEOUS DAILY 09/21/19 09/21/19 History Acid] aspirin 81 mg PO DAILY 09/21/19 09/21/19 History atenolol 12.5 mg PO DAILY 09/21/19 09/21/19 History atorvastatin 40 mg PO DAILY 09/21/19 09/21/19 History gemfibrozil 600 mg PO DAILY 09/21/19 09/21/19 History lisinopril 5 mg PO DAILY 09/21/19 09/21/19 History metformin 1,000 mg PO DAILY 09/21/19 09/21/19 History multivitamin 2 tab PO DAILY 09/21/19 09/21/19 History omega 4-bbt-sim-fish oil [Fish Oil] 2 cap PO DAILY 09/21/19 09/21/19 History oregano oil 0 mg PO DAILY 09/21/19 09/21/19 History triamcinolone acetonide 1 applic TOPICAL BID 09/21/19 09/21/19 History zinc 50 mg PO DAILY 09/21/19 09/21/19 History Past Med/Surg History Medical History Dsshctt-Fhdtz-Blhgb disease-like deformity of foot Diabetes Hyperlipidemia Hypertension Social History Smoking Status: Never smoker Hx Alcohol Use: No Hx Substance Use: No Preferred Language: Kittitian Communication Ability: Effective Optical Technician Required: No Beliefs That Will Affect Care: None Current Living Situation: Family Other Information That Helps Us Care for You: No Feels Safe at Home: Yes Safety Concerns: Feels Safe At This Time Review of Systems Review of Systems: All systems reviewed & are unremarkable except as noted in HPI & below Physical Exam Constitutional: well developed and well nourished; no acute distress Eyes: PERRL, conjunctivae normal, anicteric sclerae ENMT: external ear and nose normal, oropharynx normal Neck: trachea midline, no thyromegaly Respiratory: normal respiratory effort, lungs clear to auscultation Cardiovascular: RRR, no murmur, no edema Vessels: radial pulses present Chest (Breasts): Additional Comments: Chest tenderness over the anterior chest wall although this is a different pain than what he has been having. Gastrointestinal (Abdomen): Inspection/Auscultation: normal bowel sounds Percussion/Palpation: abdomen soft; abdomen nontender, no guarding and abdomen not rigid Musculoskeletal: no cyanosis or clubbing, extremities motor strength 5/5 Skin: no rashes, warm and dry Neurologic: moves all extremities and awake; no focal motor deficits and not confused Psychiatric: A+Ox3, euthymic affect Genitourinary: no CVA tenderness Lymphatic: no cervical or axillary lymphadenopathy Results & Data Results & Data ([facility]) Vital Signs (Past 12 Hours) Vital Signs Temp Pulse Pulse Resp BP BP Pulse Ox 09/21/19 16:27 76 16 150/102 H 97 09/21/19 16:13 74 15 163/100 H 97 09/21/19 14:50 36.7 C 91 H 18 183/126 H 97 Diagnostic Findings XR chest 1V portable IMPRESSION: No acute process. ECG Indication: chest pain Rate (beats per minute): 71 Rhythm: normal sinus Findings: + PVC and + acute ischemic change Comparison ECG Date: no prior available Change: the following changes noted (PVCs are new) Code Status & VTE Plan Code Status Full as discussed with the patient VTE Prophylaxis Plan VTE Prophylaxis will be ordered: No Reason for no VTE drug order: Treatment not indicated Reason for no VTE mechanical prophylaxis: Treatment not indicated PG Care Time/CCT Total # of Minutes Spent Total Time Spent with Patient: Total time spent is greater than 50% in coordination of care (as documented) at patient's floor/unit and/or counseling patient: Coding Level of Care Code 31978 OBS Care - Level 3 Diagnoses Atypical chest pain R07.89 GERD (gastroesophageal reflux disease) K21.9 Diabetes E11.9 Shortness of breath on exertion R06.02 PVC (premature ventricular contraction) I49.3 Hyperlipidemia E78.5 Hypertension I10 Myalgia M79.10 Nfwckbr-Jngki-Idrnu disease-like deformity of foot G60.0 DVT prophylaxis Z29.9
[2019-09-21] MEDS ORDERED: FAMOTIDINE 20 MG in SYRINGE 3 ML IV STA (17:17)
[2019-09-21] MEDS ORDERED: GI COCKTAIL ED USE PO ONE ×2 (17:19→17:21)
[2019-09-21] MEDS ORDERED: FAMOTIDINE 20MG/5ML IV PUSH IV ONE (17:22)
[2019-09-21] MEDS ORDERED: PANTOprazole 40 MG TAB PO ONE (20:35)
[2019-09-21] MEDS ORDERED: ALUMINUM/MAGNESIUM SUSP 30 ML UDC PO PRN (20:35)
[2019-09-21] MEDS ORDERED: DEXTROSE 50% 50 ML SYRINGE IV PRN (21:11)
[2019-09-21] MEDS ORDERED: GLUCOSE 10 TABS/TUBE PO PRN (21:11)
[2019-09-21] MEDS ORDERED: GLUCAGON FOR INJ 1 MG VIAL SQ PRN (21:11)
[2019-09-21] MEDS ORDERED: GLUCOSE 40% GEL 15 GM TUBE PO PRN (21:11)
[2019-09-21] MEDS ORDERED: CARBOHYDRATES FOR HYPOGLYCEMIA PO PRN (21:11)
[2019-09-21] MEDS: INSULIN GLARGINE SOLOSTAR 100 UNITS/ML 3 ML PEN SC SCH (22:08)
[2019-09-21] MEDS: TRIAMCINOLONE ACET 0.1% CR 15 GM TUBE TOP SCH (22:09)
[2019-09-22 06:57] LABS: Mean Corpuscular Hgb Conc 34.1 g/dL (32-36); Mean Platelet Volume 9.5 fL (7.4-10.4); Platelet Count 160 K/uL (130-400); RDW Coefficient of Variation 13.4 % (11.5-14.5); RDW Standard Deviation 42.5 fL (36.4-46.3); White Blood Count 4.77 K/uL (4.8-10.8)
[2019-09-22 07:26] LABS: Alanine Aminotransferase 44 U/L (12-78); Albumin Level 3.2 gm/dl (3.4-5.0); Aspartate Aminotransferase 44 U/L (15-37); BUN Creatinine Ratio 15.7 (10-20); Blood Urea Nitrogen 21 mg/dl (7-18); Calcium 8.9 mg/dl (8.5-10.1); Carbon Dioxide 27 mmol/L (21-32); Chloride 107 mmol/L (98-107); Creatinine Clr Calc Pharmacy 78.6 ml/min; Est GFR (Non-African American) 60.4; Glucose 153 mg/dl (70-99); Potassium 3.9 mmol/L (3.5-5.1); Sodium 140 mmol/L (136-145)
[2019-09-22] MEDS ORDERED: INSULIN ASPART 100 UNITS/ML 3 ML PEN SC SCH (07:30)
[2019-09-22 07:31] LABS: Albumin Globulin Ratio 0.8 (0.9-2); Alkaline Phosphatase 60 U/L (45-117); Bilirubin,Total 0.5 mg/dl (0.2-1); Chol HDL Ratio 5; Cholesterol 163 mg/dl (0-200); Globulin 3.8 gm/dl (2.5-4.0); HDL Cholesterol 34 mg/dl; Triglycerides 576 mg/dl (0-150); Troponin I < 0.015 ng/ml (0-0.045)
[2019-09-22 08:03] LABS: Basophils # (auto) 0.01 K/uL (0-0.2); Basophils % (auto) 0.2 %; Eosinophils # (auto) 0.23 K/uL (0-0.5); Eosinophils % (auto) 4.8 %; Immature Granulocytes # (auto) 0.01 K/uL (0.00-0.02); Immature Granulocytes % (auto) 0.2 %; Lymphocytes # (auto) 2.41 K/uL (1.2-3.4); Lymphocytes % (auto) 50.5 %; Monocytes # (auto) 0.38 K/uL (0.11-0.59); Neutrophils # (auto) 1.73 K/uL (1.4-6.5); Neutrophils % (auto) 36.3 %
[2019-09-22] MEDS: INSULIN GLARGINE SOLOSTAR 100 UNITS/ML 3 ML PEN SC SCH (08:26)
[2019-09-22] MEDS: TRIAMCINOLONE ACET 0.1% CR 15 GM TUBE TOP SCH (08:27)
[2019-09-22] MEDS: INSULIN ASPART 100 UNITS/ML 3 ML PEN SC SCH ×3 (08:30→17:19)
[2019-09-22] MEDS ORDERED: OREGANO OIL PO SCH (09:00)
[2019-09-22] MEDS ORDERED: ATORVASTATIN 40 MG TAB PO SCH (09:00)
[2019-09-22] MEDS ORDERED: [UNRECOGNIZED DRUG - OTHER] PO SCH (09:00)
[2019-09-22] MEDS ORDERED: lisinopriL 5 MG TAB PO SCH (09:00)
[2019-09-22] MEDS ORDERED: MULTIVITAMIN TAB PO SCH (09:00)
[2019-09-22] MEDS ORDERED: allopurinoL 300 MG TAB PO SCH (09:00)
[2019-09-22] MEDS ORDERED: NON-FORMULARY MEDICATION (Zinc 50 MG) PO SCH (09:00)
[2019-09-22] MEDS ORDERED: OMEGA-3 (PURIFIED FISH OIL) 1 GM CAP PO SCH (09:00)
[2019-09-22] MEDS ORDERED: ATENOLOL 25 MG TABLET PO SCH (09:00)
[2019-09-22] MEDS ORDERED: PANTOprazole 40 MG TAB PO SCH ×2 (09:00→10:30)
[2019-09-22] MEDS ORDERED: ALPHA LIPOIC ACID MS SCH (09:00)
[2019-09-22] MEDS ORDERED: ASPIRIN 81 MG ECTAB PO SCH (09:00)
--- NOTE | 2019-09-22 09:57 | XCELERA ---
[id number]
[2019-09-22] MEDS ORDERED: ACETAMINOPHEN 325 MG TAB PO PRN (09:59)
[2019-09-22 11:18] LABS: Lyme Ab IgG w/WB Rflx Negative (Negative)
[2019-09-22 11:19] LABS: Lyme Ab IgM w/WB Rflx Negative (Negative)
--- NOTE | 2019-09-22 15:39 | Discharge Summary ---
Date of Service September 22, 2019 Admission HPI Per Admitting Provider Cam Kuhn is a 54-year-old male who presents with multiple concerns but mainly chest pain and fatigue. He describes 2 separate pains but jumps between the them. The first appears at nighttime when he is sleeping and appears positional as he lies down. Each night it is became more severe especially on the left side when lying down. Ongoing for months but becoming more frequent and severe. Last night it was so severe this is what prompted his visit to the ER today. He is unable to give a severity score as he describes it more of a pressure than a pain. Associated heart palpitations and sudden jerking movements of his upper body. No association with diaphoresis or nausea. The second chest pressure is mostly fatigue and feeling out of breath on minimal exertion or during the day. This too is becoming more frequent and more severe. Nonpleuritic. Occurs on exertion and is relieved with rest. Does not know if it radiates as he has multiple joint aches elsewhere including cervical radiculopathies. No prior cardiovascular disease. He does have heartburn which also has become more frequent lately. More recently he does not even have to eat anything spicy. Comes on a few days at a time. Some days he is not getting a stool. Taking antacids approximately half the time he gets symptoms. He does not feel the symptoms above are related to his heartburn which is more of a burning sensation in his throat. He reports multiple chronic pains with lumbar spondylosis, C5/6 radiculopathy, carpal tunnel syndrome, headaches, bilateral shoulder pains. In the ER he was treated for acute coronary syndrome with aspirin, nitroglycerin which did not improve his symptoms. He received fentanyl which made him "loopy" and confused -but did not significantly impact his pain. Once I sat him up for 5 to 10 minutes after lying down his pain significantly decreased. Principal Diagnosis Pt is feeling much better. He does have some LUQ pain if he pushes into the area, but no longer with chest pain since taking GI cocktail in the ED. States he takes generic TUMS about 2x/week for heartburn pain, but that this pain is different from the pain that resolved with the GI cocktail as in it is not as severe. He does note that he has a headache in the back of his head, which is usual for him to have. He states this is related to an issue at his C5-6. He generally takes tylenol for this. He has not asked nursing for this yet. Pt denies fever, SOB, n/v/c/d, LE pain or swelling. Tolerating PO without issue. Pt notes he had an engorged tick about 1 year ago. He did not seek care for this at any point. Discharge Exam Constitutional WD/WN, vitals as above Eyes normal visual blackwell by confrontation and + anicteric sclerae Neck normal visual inspection and trachea midline Respiratory normal respiratory effort, lungs clear to auscultation Cardiovascular Rate/Rhythm: regular rate and regular rhythm Gastrointestinal (Abdomen) Inspection/Auscultation: abdomen not distended Percussion/Palpation: abdomen soft; abdomen nontender Musculoskeletal Head/Neck/Chest: normocephalic and head atraumatic Skin no rashes, warm and dry Neurologic awake; not confused Speech / Cognition: normal speech Psychiatric A+Ox3, euthymic affect Discharge Data Allergies Allergy/AdvReac Type Severity Reaction Status Date / Time vancomycin Allergy Intermediate RASH Verified 09/21/19 15:49 monosodium glutamate Allergy Unknown Unknown Verified 09/22/19 09:41 turmeric Allergy Unknown Unknown Verified 09/22/19 09:41 meperidine AdvReac Intermediate hallucinati Verified 09/21/19 15:49 ons Consultations 09/21/19 16:47 ED Decision to Admit Stat 09/22/19 15:31 Consult Health Information Management Routine Hospital Course (1) Atypical chest pain: Chest pain at night appears to be positional and most consistent GERD/esophageal motility related - helped with GI cocktail and pepcid IV given in ER (see treatment below). 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 He had good resolution of the symptoms with a GI cocktail. Therefore I suspect this is the cause of his atypical chest pain as above especially the one he describes at night. Pantoprazole 40mg on d/c (3) Diabetes: Hold metformin and alogliptin during admission HbA1c pending (4) Shortness of breath on exertion: Shortness of breath / fatigue on exertion This is more concerning symptom for unstable angina ECHO WNL with EF 65-70% and neg for structural issues Trop neg x3 Neg on tele monitor EKG with PVCs (5) PVC (premature ventricular contraction): Multifocal PVCs on initial EKG. Unclear whether this may be causing some of his symptoms (6) Hyperlipidemia: Continue atorvastatin. Stop gemfibrozil given myalgias (see below). (7) Hypertension: Continue his usual atenolol 12.5 mg p.o. daily, lisinopril 5 mg p.o. daily. (8) Myalgia: Concerning combination of gemfibrozil and atorvastatin possible causing his myalgias t/c CoQ10 Lyme neg CBC, PRP WNL ESR with slight elevation at 23 CRP WNL (9) Rjogsdm-Uyelu-Znalm disease-like deformity of foot: Continue brace on right lower extremity (10) DVT prophylaxis: No chemical or mechanical DVT prophylaxis warranted. Encourage mobility to reduce risk of DVTs. 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" per pt No recurrence and no longer being followed for this Total Time Total Time Spent Total Time Spent (In Minutes): >30 Total Time Includes: Examination of the Patient, Discharge Planning, Medication Reconciliation and Other Discharge Plan Discharge Items Patient Disposition: Home - Self-Care Reason For Visit: CHEST PAIN R/O ACS Discharge Diagnosis: Chest pain, possibly GERD Activity: Resume your previous activity Non-emergency contact: Primary Care Provider Call non-emergency contact if: you have any medication questions and your symptoms worsen Follow-up/Referrals: Eliza Resendez PA-C [Primary Care Provider] - Diet: Carb Consistent or DM2 Addtl Attending Provider Instructions: You will need to have a stress test done as an outpatient. Case management should call you some time this week to help you set this up. If you have not heard from them by Monday afternoon, you should call the hospital ask to be connected to their office. If you are found to have an issue with your heart, you may not need to continue using the protonix. Ideally, you will not be on the protonix fci and can wean off of it by working on your diet and decreasing the girth in your abdomen. You had many labs drawn during your admission. You do not need to have the labs done that were ordered prior by your PCP. Take the copies of your labs to your appt on 09/30. You should take your probiotic away from your reflux medication. You will take the reflux medication in the morning, so I would suggest continue taking the probiotic at night. You mentioned that you have had issues with muscle cramping/pain. It is important that you continue to take your cholesterol medication. You should start taking CoQ10 300mg per day. This will help to prevent the cramping/spasms/pain that some people get with statin use. CoQ10 comes in 2 forms: ubiquinOL and ubiquinONE. Ubiquinol is the active and best form to take as it is already ready for your body to use. It will absorb better than ubiquinone. Due to this, ubiquinol can be a bit more expensive than ubiquinone, but it will be more effective for you to take the more expensive version. You can find this at most drugs [employer], [employer], [employer], etc. You should take this with some sort of fat for best absorption: dairy products, olive oil, avocados will work for this. Pending Studies at Discharge: Yes Studies:: A1c Stand-Alone Forms: My [facility] [email or web address], Smoking Cessation Medications and DC Order Prescriptions: New pantoprazole 40 mg Tablet,Delayed Release (Dr/Ec) 40 mg PO QAM Qty: 30 RF: 0 Continued atorvastatin 80 mg Tablet 40 mg PO DAILY RF: 0 atenolol 25 mg Tablet 12.5 mg PO DAILY RF: 0 triamcinolone acetonide 0.1 % Cream 1 applic TOPICAL BID RF: 0 gemfibrozil 600 mg Tablet 600 mg PO DAILY RF: 0 allopurinol 300 mg Tablet 300 mg PO DAILY RF: 0 multivitamin Tablet 2 tab PO DAILY RF: 0 metformin 500 mg Tablet 1,000 mg PO DAILY RF: 0 aspirin 81 mg Tablet,Delayed Release (Dr/Ec) 81 mg PO DAILY RF: 0 zinc 50 mg Tablet 50 mg PO DAILY RF: 0 lisinopril 5 mg Tablet 5 mg PO DAILY RF: 0 alpha lipoic acid (bulk) [Lipoic Acid] Powder 1 ea MISCELLANEOUS DAILY RF: 0 oregano oil 1,500 mg Capsule 0 mg PO DAILY RF: 0 omega 0-vlx-kwu-fish oil [Fish Oil] 1,000 mg (120 mg-180 mg) Capsule 2 cap PO DAILY RF: 0 alogliptin 12.5 mg Tablet 12.5 mg PO DAILY RF: 0 Kidney Korrect 1 dose PO DAILY RF: 0 Q-Evail 100 100 mg PO DAILY RF: 0 Discharge Orders: Discharge Order (Routine); Ordered 09/22/19 Ordered By: Shannen Peterson Admission Data Admit Date/Time: 09/21/19 19:48 Attending Provider: Shannen Peterson Admit Provider: Christian Jeter Primary Care Provider: Eliza Resendez Other Providers: Christian Jeter Coding Level of Care Code D/C Day Management >30 mins Diagnoses Atypical chest pain R07.89 GERD (gastroesophageal reflux disease) K21.9 Diabetes E11.9 Shortness of breath on exertion R06.02 PVC (premature ventricular contraction) I49.3 Hyperlipidemia E78.5 Hypertension I10 Myalgia M79.10 Kkdormf-Pudmj-Uaefy disease-like deformity of foot G60.0 DVT prophylaxis Z29.9 Germ cell carcinoma of testicle C62.90
[2019-09-23 06:56] LABS: Estimated Average Glucose 197 mg/dl; Hemoglobin A1C 8.5 % (4.5-5.6)
--- NOTE | 2019-09-23 13:25 | Electrocardiogram Report ---
Test Reason : Blood Pressure : / mmHG Vent. Rate : 083 BPM Atrial Rate : 081 BPM P-R Int : 186 ms QRS Dur : 082 ms QT Int : 368 ms P-R-T Axes : 067 004 031 degrees QTc Int : 432 ms Sinus rhythm with frequent Premature ventricular complexes some with fusion Otherwise normal ECG When compared with ECG of 02-NOV-2006 10:35, Premature ventricular and fusion complexes are now Present Nonspecific T wave abnormality has replaced inverted T waves in Inferior leads Confirmed by Aaron Polanco ([id number]) on 09/23/2019 1:25:22 PM Referred By: REFERRED SELF Confirmed By:Aaron Polanco
--- NOTE | 2019-09-23 13:26 | Electrocardiogram Report ---
Test Reason : Blood Pressure : / mmHG Vent. Rate : 071 BPM Atrial Rate : 071 BPM P-R Int : 186 ms QRS Dur : 090 ms QT Int : 400 ms P-R-T Axes : 041 -14 005 degrees QTc Int : 434 ms Normal sinus rhythm Normal ECG When compared with ECG of 21-SEP-2019 14:55, (unconfirmed) Premature ventricular complexes are no longer Present Confirmed by Aaron Polanco ([id number]) on 09/23/2019 1:25:57 PM Referred By: REFERRED SELF Confirmed By:Aaron Polanco
== END 2019-09-22 18:40 | disposition home or self-care (01) ==
LOC: ED 14:46 → 2N 14:46 → SUATTDRO 19:48 → 2N 20:34